=== PATIENT | male | born 1965 | race Caucasian/White ===

== ENCOUNTER → 2024-01-05 10:51 | Outpatient (CLI) | payer OTHER, SELFPAY ==
--- NOTE | ~2024-01-05 | XR_ITS ---
EXAMINATION: XR knee RT 3V DATE: 01/05/2024 11:13 INDICATION: Right knee pain TECHNIQUE: Three views of the right knee were obtained. COMPARISON: None. FINDINGS: Alignment is normal. No fracture or osteochondral lesion. There is mild tricompartmental os teoarthritis characterized by tiny marginal osteophytes. No joint effusion/synovitis. Soft tissues a re unremarkable. IMPRESSION: 1. No acute osseous abnormality. Reviewed, dictated and finalized at location L. R READING CLERK
--- NOTE | ~2024-01-05 | XR_ITS ---
EXAMINATION: XR knee LT 3V DATE: 01/05/2024 11:12 INDICATION: Left knee pain TECHNIQUE: Three views of the left knee were obtained. COMPARISON: None. FINDINGS: Alignment is normal. No fracture or osteochondral lesion. There is mild tricompartmental os teoarthritis characterized by tiny marginal osteophytes. No joint effusion/synovitis. Soft tissues a re unremarkable. IMPRESSION: 1. No acute osseous abnormality. Reviewed, dictated and finalized at location L. URE REPAIRER FABRICATOR
== END ==
PROVIDERS: PCP Physician Assistant; Visit Provider Physician Assistant
DX: S89.92XA Unspecified injury of left lower leg, initial encounter (principal); S89.91XA Unspecified injury of right lower leg, initial encounter
CPT/HCPCS: 73562

== ENCOUNTER 2024-01-19 16:38 | Emergency (ER) | payer OTHER, SELFPAY ==
[2024-01-19] VITALS (12 sets, daily range): BP systolic 114–137; BP diastolic 79–94; PULSE 91–101; RESP 12–18; TEMP 35.9–36.8; O2SAT 96–100
--- NOTE | ~2024-01-19 | XR_ITS ---
EXAMINATION: XR chest 1V portable DATE: 01/19/2024 19:27 INDICATION: Weakness. TECHNIQUE: A single frontal view of the chest was obtained on 2 radiographs. COMPARISON: Chest 2 views 12/31/2017 FINDINGS: There is no pneumonia, pleural effusion, or pneumothorax. The heart size is normal. IMPRESSION: 1. No acute cardiopulmonary disease. Reviewed, dictated and finalized at location E. UITING SPECIALIST
[2024-01-19] MEDS: SODIUM CHLORIDE 0.9% IV 1,000 ML 999 ML (18:45)
--- NOTE | 2024-01-19 18:57 | ECG_ITS ---
Measurements Intervals [place] Rate: 95 P: 69 [place]: 151 QRS: -51 QRSD: 110 T: -65 QT: 370 QTc: 467 Interpretive Statements SINUS RHYTHM LEFT ANTERIOR FASCICULAR BLOCK LEFT VENTRICULAR HYPERTROPHY AND ST-T CHANGE CANNOT RULE OUT SEPTAL INFARCT, AGE INDETERMINATE ST-T WAVE ABNORMALITY IN ANTEROLAT/INF LEADS- CONSIDER ISCHEMIA BASELINE ARTIFACT- I, II, III, AVR, AVL, V1-V2, V4 ABNORMAL ECG NO PREVIOUS ECG AVAILABLE FOR COMPARISON Electronically Signed On 01-19-2024 19:17:17 COMMERCIAL CONSTRUCTION SUPERINTENDENT by Michael Siu D.O.
[2024-01-19 19:53] LABS: Basophils Percent Auto 0.4 % (0.2-1.2); Eosinophils Percent Auto 0.1 % (0-4.4); Hematocrit 40.4 % (42.0-52.0); Hemoglobin 14.6 g/dL (14.0-18.0); Immature Granulocyte Absolute 0.05 K/mm3 (0.00-0.031); Immature Granulocyte Percent A 0.5 % (0-0.5); Lymphocytes Absolute Auto 0.99 K/mm3 (0.9-3.2); Lymphocytes Percent Auto 9.1 % (18.3-44.2); Mean Corpuscular HGB Conc 36.1 g/dl (32-36); Mean Corpuscular Hemoglobin 30.4 pg (26-34); Mean Corpuscular Volume 84.2 fl (80-100); Mean Platelet Volume 8.2 fl (7.4-10.4); Monocytes Absolute Auto 0.8 K/mm3 (0.1-0.6); Monocytes Percent Auto 7.3 % (2.6-8.5); Neutrophils Percent Auto 82.6 % (45.5-73.1); Platelet Count Result 310 k/mm3 (150-375); Red Cell Distribution Width 12.3 % (11.5-14.5); White Blood Count 10.9 K/mm3 (4.5-10.0)
[2024-01-19 20:01] LABS: Lactic Acid Reflex 0.9 mmol/L (0.7-2.0)
--- NOTE | 2024-01-19 20:03 | ED.DIZZY ---
HPI - Dizziness General Chief Complaint: Syncope Stated Complaint: NEAR SYNCOPE AFTER POSITION CHANGE Time Seen by Provider: 01/19/24 19:16 History of Present Illness HPI Narrative: Patient is a 58-year-old male who presents to the emergency department this evening from his physical therapy facility due to a low blood pressure. Patient's family member present at bedside states that the patient was being evaluated today for physical therapy, however, patient was found to be orthostatic and was sent to our facility for further evaluation. Patient admits that he has not been drinking enough fluids. He is currently denying any chest pain, shortness of breath, nausea, vomiting and denies any falls or injuries. He denies any fevers or chills at home, any headaches, dizziness, blurry vision, focal weakness, numbness and tingling. There are no other modifying, alleviating, or precipitating factors at this time. Related Data Allergies Allergy/AdvReac Type Severity Reaction Status Date / Time No Known Allergies Allergy Verified 01/17/24 09:46 Review of Systems Review of Systems: All systems are reviewed and are negative unless stated otherwise in the HPI. [facility] Past Medical History Medical History Broken collarbone Diabetic peripheral neuropathy Hyperlipidemia LDL goal <70 Obesity (BMI 30-39.9) Seizure disorder Type 2 diabetes mellitus with hyperglycemia Vitamin D deficiency Surgical History Surgical History History of tonsillectomy Social History Social History Smoking status: Current every day smoker Second hand tobacco smoke exposure: No Alcohol intake: never Substance use: never Substance use type: does not use Living arrangements: with family Occupation/Education: occupation Gender identity (if verbalized by the patient): Male Sexual Orientation (if Verbalized by the Patient): Straight or Heterosexual Spiritual care concerns: No Agree to blood products: Yes Exam Narrative: General: Alert, awake, afebrile, in no acute distress. HEENT: PERRL, no rhinorrhea, no post nasal drip, oropharynx clear. Neck: Trachea midline, no JVD, no lymphadenopathy. Cardiovascular: Regular rate and rhythm, no murmurs, rubs or gallops, no peripheral edema. Respiratory: Clear to auscultation bilaterally, no tachypnea, no wheezing, no rhonchi, no rubs, no respiratory distress. Abdomen: Soft, nontender, nondistended, no rebound, no guarding, no peritoneal signs. Musculoskeletal: No joint swelling or deformity, normal muscle tone. Skin: No rashes or petechia, no signs of infection. Psychiatric: Alert and oriented, normal behavior and judgment for situation. Neurological: Alert and oriented to person, place, and time. Follows all commands. No focal deficits, speech is clear and fluent. Patient is ambulating well using his cane. Course Vital Signs Vital signs: Vital Signs Temperature 96.7 F L 01/19/24 18:21 Pulse Rate 100 01/19/24 18:21 Respiratory Rate 18 01/19/24 18:21 Pulse Oximetry 100 01/19/24 18:21 Oxygen Delivery Room Air 01/19/24 18:21 Temperature 98.2 F 01/19/24 22:05 Pulse Rate 101 H 01/19/24 23:28 Respiratory Rate 18 01/19/24 23:28 Blood Pressure 135/94 H 01/19/24 23:28 Pulse Oximetry 96 01/19/24 23:28 Oxygen Delivery Room Air 01/19/24 18:21 MDM - Dizziness MDM Narrative Medical decision making narrative: The patient was evaluated by myself in the emergency department. History is obtained from patient who is an independent historian and physical exam was performed. External medical records were reviewed at this time. IV was established and pertinent tests were ordered. Patient was administered a 1.5 L IV fluid bolus administered over 2 hours. EKG was obtained which revealed sinus rhythm
[2024-01-19 20:08] LABS: Alanine Aminotransferase 22 U/L (6-50); Albumin Level 3.8 g/dL (3.5-5.1); Alkaline Phosphatase 164 U/L (38-126); Anion Gap 12 mmol/L (8-16); Aspartate Amino Transferase 20 U/L (17-59); Bilirubin,Total 0.7 mg/dL (0.2-1.3); Blood Urea Nitrogen 15 mg/dL (9-20); Calcium 9.3 mg/dL (8.4-10.2); Carbon Dioxide 23 mmol/L (22-30); Chloride 104 mmol/L (98-107); Creatine Kinase 24 U/L (55-170); Estimated Glomerular Filt Rate > 60; Glucose 223 mg/dL (65-110); Magnesium 1.8 mg/dL (1.6-2.3); Potassium 3.8 mmol/L (3.4-5.0); Sodium 139 mmol/L (137-145)
[2024-01-19] MEDS: SODIUM CHLORIDE 0.9% IV 1,000 ML 150 ML IV CONT (20:14)
[2024-01-19 20:31] LABS: Influenza A QL RT-PCR Negative (Negative); Influenza B QL RT-PCR Negative (Negative); RSV RNA, RT-PCR Negative (Negative); SARS-CoV-2 RNA PCR Negative (Negative)
[2024-01-19 21:18] LABS: Troponin I < 0.012 ng/mL (0.000-0.034)
--- NOTE | 2024-01-19 21:24 | ECG_ITS ---
Measurements Intervals [place] Rate: 94 P: 68 [place]: 153 QRS: -51 QRSD: 115 T: -70 QT: 373 QTc: 468 Interpretive Statements SINUS RHYTHM INTRAVENTRICULAR CONDUCTION DELAY CANNOT RULE OUT SEPTAL INFARCT, AGE INDETERMINATE MINIMAL Q WAVES- HIGH LATERAL LEADS ST-T WAVE ABNORMALITY IN ANTEROLAT/INF LEADS- CONSIDER ISCHEMIA BASELINE ARTIFACT- I, AVR, AVL, AVF, V2 ABNORMAL ECG COMPARED TO ECG 01/19/2024 18:53:15 NO SIGNIFICANT CHANGES Electronically Signed On 01-20-2024 6:44:01 SUPERVISOR HAND SILVERING by Michael Siu D.O.
== END 2024-01-19 23:42 | disposition home or self-care (01) ==
PROVIDERS: Emergency Provider Emergency Medicine; PCP Family Medicine
DX: I95.1 Orthostatic hypotension (principal); E86.0 Dehydration; E78.5 Hyperlipidemia, unspecified; E11.9 Type 2 diabetes mellitus without complications; F17.200 Nicotine dependence, unspecified, uncomplicated; Z20.822 Contact with and (suspected) exposure to COVID-19
CPT/HCPCS: 36415; 71045; 80053; 82010; 82550; 83605; 83735; 84484; 85025; 87637; 93005; 96360; 96361; 99284; J7030

== ENCOUNTER 2024-01-25 12:42 | Outpatient (CLI) | payer OTHER, SELFPAY ==
--- NOTE | ~2024-01-25 | CT_ITS ---
EXAMINATION: CT brain wo/w con DATE: 01/25/2024 13:28 INDICATION: Unsteadiness on feet TECHNIQUE: Computed tomography (CT) of the head was performed without and with 100 mL Omnipaque-350 i ntravenous contrast. Sagittal and coronal reconstructions were performed. The mA was adjusted accordi ng to patient size. Iterative reconstruction technique was employed. The dose-length product was 1349 .03 mGy-cm. COMPARISON: None FINDINGS: No acute intracranial hemorrhage, acute infarction or abnormal extra axial fluid collection. There is mild scattered white matter hypoattenuation consistent with chronic small vessel ischemic disease. V entricles are normal and symmetric. No mass/mass effect. No abnormally enhancing brain lesions identi fied. Right vertebral artery is dominant. Cerebral vasculature appears otherwise unremarkable on the postcontrast imaging. The orbits, paranasal sinuses and mastoid air cells are normal. IMPRESSION: 1. Mild scattered white matter hypoattenuation consistent with chronic small vessel ischemic disease. No acute intracranial process or abnormally enhancing brain lesions. Reviewed, dictated and finalized at location B. IMPRESSION: 1. Mild scattered white matter hypoattenuation consistent with chronic small ve ssel ischemic disease. No acute intracranial process or abnormally enhancing br ain lesions.
[2024-01-25 13:03] LABS: Estimated Glomerular Filt Rate > 60
== END 2024-01-25 12:43 ==
LOC: MICIMG 12:43
PROVIDERS: PCP Physician Assistant Medical; Visit Provider Physician Assistant Medical
DX: R90.82 White matter disease, unspecified (principal); R26.81 Unsteadiness on feet
CPT/HCPCS: 36415; 70470; Q9967

== ENCOUNTER 2024-03-13 12:34 | Inpatient (IN) | payer OTHER, SELFPAY ==
[2024-03-13] VITALS (7 sets, daily range): BP systolic 110–129; BP diastolic 68–105; PULSE 101–111; RESP 17–18; TEMP 36.6–36.7; O2SAT 95–99; BMI 24.6
--- NOTE | ~2024-03-13 | XR_ITS ---
EXAM: XR toe 1st RT min 2V DATE: 03/13/2024 23:24 HISTORY: right 1st toe ulcer . COMPARISON: None available. FINDINGS: Normal mineralization. No fracture or dislocation. No lytic or blastic lesion. Mild degene rative change at the first MTP joint. No erosion or periosteal change. Soft tissues within normal tomlin its. IMPRESSION: No acute osseous finding in the right great toe. Reviewed, dictated and finalized at location K.
--- NOTE | ~2024-03-13 | XR_ITS ---
EXAMINATION: XR chest 1V DATE: 03/13/2024 14:03 INDICATION: Transient alteration of awareness. TECHNIQUE: A single frontal view of the chest was obtained. COMPARISON: Chest view 01/19/2024 FINDINGS: There is no pneumonia, pleural effusion, or pneumothorax. The heart size is normal. IMPRESSION: 1. No acute cardiopulmonary disease. Reviewed, dictated and finalized at location A.
--- NOTE | ~2024-03-13 | MR_ITS ---
EXAMINATION: MR brain/brain stem wo/w con DATE: 03/14/2024 16:30 INDICATION: Neurological decline. TECHNIQUE: Magnetic resonance imaging (MRI) of the brain and brainstem was performed without and with 17 mL MultiHance intravenous contrast. COMPARISON: Head CT 03/13/2024 FINDINGS: There is no intracranial hemorrhage, acute infarction, or abnormal intracranial mass lesion . The ventricles are normal in size. There is mild mucosal thickening in the ethmoid sinuses. The orb its are normal. The mastoid air cells are normal. IMPRESSION: 1. Normal brain. Reviewed, dictated and finalized at location A. IMPRESSION: 1. Normal brain.
--- NOTE | ~2024-03-13 | XR_ITS ---
EXAMINATION: XR lumbar puncture diagnostic DATE: 03/17/2024 09:58 INDICATION: 3 months of quantitative PICC line and hallucinations TECHNIQUE: The procedure including the risks and benefits was discussed with the patient and the shayna ent's . Risks discussed included spinal headache, cerebrospinal fluid leak, bleeding, and infecti on. The patient and patient's understood the risks and agreed to proceed. A timeout was perfo rmed to verify the patient's name, date of , and procedure to be performed. The skin overlying the L4-L5 level was prepped and draped in usual sterile fashion. Subcutaneous 1% lidocaine was used for local anesthesia. A 22 gauge spinal needle was advanced under fluoroscopic guidance. The needle was removed and the entry site was cleaned and dressed. There were no immediate complications. A tot al of 1 fluoroscopic image and one overhead radiograph were obtained. The amount of fluoroscopy time used during this procedure was 0.3 minutes. Total DAP was 8.894 Gycm^2. There were no immediate compl ications and the patient was returned to the floor in unchanged condition. FINDINGS: Real-time fluoroscopy demonstrates the needle at the L4-L5 level. Opening pressure was 12 c m water. (Normal range is variably defined as 6-20 cm water and up to 25 cm water in obese patients. Pressure >25 cm water is one of the modified Dandy criteria for idiopathic intracranial hypertension) . 12 mL of clear, colorless fluid was collected in 4 tubes. IMPRESSION: 1. Successful fluoro-guided lumbar puncture. Reviewed, dictated and finalized at location A.
--- NOTE | ~2024-03-13 | CT_ITS ---
EXAMINATION: CT brain wo con DATE: 03/13/2024 13:55 INDICATION: Altered mental status. Confusion. TECHNIQUE: Computed tomography (CT) of the head was performed without intravenous contrast. The mA wa s adjusted according to patient size. Iterative reconstruction technique was employed. The dose-lengt h product was 1362.00 mGy-cm. COMPARISON: Head CT 01/25/2024 FINDINGS: There is no intracranial hemorrhage, acute infarction, or abnormal intracranial mass lesion . The ventricles are normal in size. The orbits are normal. There is mild mucosal thickening in the e thmoid sinuses. The mastoid air cells are normal. IMPRESSION: 1. Normal brain. Reviewed, dictated and finalized at location A. IMPRESSION: 1. Normal brain.
--- NOTE | 2024-03-13 12:39 | ECG_ITS ---
SEE SCANNED COPY FOR CONFIRMED REPORT. MTDD
--- NOTE | 2024-03-13 12:43 | ED.EXTPRO ---
HPI - Extremity Problem General Chief complaint: Recheck/Abnormal Lab/Rx Stated complaint: unresponsive/hypoglycemic History of Present Illness HPI Narrative: 58-year-old male presenting emergency department for evaluation after being found unresponsive. states that she had left yesterday and patient was resting in his chair and when she returned today he was still sitting in the same position. When she went to talk to the patient he was unresponsive. EMS was called. When EMS arrived to the scene patient was unresponsive sonorous respirations and did have a blood sugar of 20. Patient was treated with IV dextrose and did have improvement of his mental status upon arrival to the emergency department. Patient did have loss of bladder control. Upon arrival emergency department patient is more alert is able to provide his name. Patient is unable to provide an adequate history and was unsure if he has a history of seizures or diabetes. Patient's EMR does show history high cholesterol, seizure disorder and type 2 diabetes with peripheral neuropathy. Upon arrival emergency department patient denies any chest pain shortness of breath denies any pain or injury. Related Data Home Medications Medication Instructions Recorded Confirmed cholecalciferol (vitamin D3) 50 50 mcg PO DAILY 03/13/24 03/13/24 mcg (2,000 unit) tablet (Vitamin D3) insulin glargine-yfgn 100 unit/mL 38 unit subcut BID 03/13/24 03/13/24 (3 mL) subcutaneous pen (Semglee (insulin glargine-yfgn) Pen) metformin 500 mg tablet,extended 2,000 mg PO QPM 03/13/24 03/13/24 release 24 hr Allergies Allergy/AdvReac Type Severity Reaction Status Date / Time No Known Allergies Allergy Verified 02/28/24 10:57 Review of Systems Review of Systems: All systems reviewed & are unremarkable except as noted in HPI and below PMFSH Past Medical History Medical History Broken collarbone Diabetic peripheral neuropathy Hyperlipidemia LDL goal <70 Obesity (BMI 30-39.9) Seizure disorder Type 2 diabetes mellitus with hyperglycemia Vitamin D deficiency Surgical History Surgical History History of tonsillectomy Family History Family History (Updated 03/13/24 @ 18:22 by Trudy Lee RN) Father Acute myocardial infarction Other Diabetes mellitus Mother Chronic leukemia Social History Social History Smoking status: Never smoker Second hand tobacco smoke exposure: No Alcohol intake: never Substance use: never Substance use type: does not use Do You Feel Safe in your Home?: Yes Lack of Transportation: No Lack of Food: Never True Current Housing: I Have Housing Concerned About Future Housing: No Difficulty Paying Gas/Electric Bills: No Difficulty Paying for Meds: No Currently Unemployed: No Education: Bachelor's Degree Difficulty w/ Childcare or Family Care: No Living arrangements: with family Occupation/Education: occupation Gender identity (if verbalized by the patient): Male Sexual Orientation (if Verbalized by the Patient): Straight or Heterosexual Spiritual care concerns: No Agree to blood products: Yes Exam Narrative: APPEARANCE: well-appearing but somnolent HEAD: normocephalic, atraumatic. EYES: PERRLA/EOMI, conjunctivae clear. NOSE: Normal no drainage EARS:TMS clear with good light reflex. THROAT: Pharynx clear, no exudate. NECK: Supple. No adenopathy, no masses. RESPIRATORY: Airway patent, respirations nonlabored. Clear to auscultation bilaterally, no rales, rhonchi, wheezing. CARDIOVASCULAR: Regular rate and rhythm without murmurs rubs or gallops. ABDOMINAL: Soft, nontender, nondistended, normal bowel sounds MUSCULOSKELETAL: Moves all extremities. Strength/ROM intact, No edema, No calf tenderness.
--- NOTE | 2024-03-13 12:43 | PC.NURSE ---
blood sugar 106 at this time
[2024-03-13 12:57] LABS: Glucose Point of Care 106 mg/dl (65-105)
[2024-03-13] MEDS: SODIUM CHLORIDE 0.9% IV 1,000 ML 999 ML IV CONT ×2 (13:05→14:29)
[2024-03-13 13:09] LABS: Alveolar/Arterial O2 Gradient 23.2 mmHg; Base Excess ABG -0.5 mEq/l (+/-2.0); Fractional Inspired Oxygen 21 %; HCO3 ABG 23.1 mEq/l (22.0-26.0); Oxygen Content ABG 22.5 %vol (16.0-22.0); Oxygen Saturation ABG 96.6 % (95.0-100.0); Oxyhemoglobin 95.2 % THb (90.0-100.0); PCO2 ABG 35.4 mmHg (35.0-45.0); PO2 ABG 84.1 mmHg (80.0-100.0); Total Hemoglobin 16.8 g/dL (12.0-18.0); pH ABG 7.432 (7.350-7.450)
[2024-03-13 13:11] LABS: Basophils Percent Auto 0.3 % (0.2-1.2); Eosinophils Percent Auto 0.1 % (0-4.4); Hematocrit 45.9 % (42.0-52.0); Hemoglobin 16.5 g/dL (14.0-18.0); Immature Granulocyte Absolute 0.04 K/mm3 (0.00-0.031); Immature Granulocyte Percent A 0.3 % (0-0.5); Lymphocytes Absolute Auto 0.81 K/mm3 (0.9-3.2); Lymphocytes Percent Auto 5.6 % (18.3-44.2); Mean Corpuscular HGB Conc 35.9 g/dl (32-36); Mean Corpuscular Hemoglobin 30.3 pg (26-34); Mean Corpuscular Volume 84.2 fl (80-100); Mean Platelet Volume 8.5 fl (7.4-10.4); Monocytes Absolute Auto 0.8 K/mm3 (0.1-0.6); Monocytes Percent Auto 5.6 % (2.6-8.5); Neutrophils Absolute Auto 12.7 K/mm3 (1.3-6.7); Neutrophils Percent Auto 88.1 % (45.5-73.1); Platelet Count Result 226 k/mm3 (150-375); Red Blood Count 5.45 M/mm3 (4.6-6.20); Red Cell Distribution Width 14.1 % (11.5-14.5); White Blood Count 14.4 K/mm3 (4.5-10.0)
[2024-03-13 13:19] LABS: Device ROOM AIR; Modified Allen's Test Pass; Site Drawn RIGHT RADIAL
[2024-03-13 13:22] LABS: Creatine Kinase 66 U/L (55-170); Lactic Acid Reflex 1.2 mmol/L (0.7-2.0)
[2024-03-13 13:26] LABS: INR 0.9; Prothrombin Time 12.9 Seconds (11.1-14.7)
[2024-03-13 13:27] LABS: Partial Thromboplastin Time 32.2 Seconds (22.3-36.8)
[2024-03-13 13:28] LABS: Acetaminophen < 10 ug/mL (10-30); Alanine Aminotransferase 19 U/L (6-50); Albumin Level 4.2 g/dL (3.5-5.1); Alkaline Phosphatase 151 U/L (38-126); Anion Gap 7 mmol/L (4-12); Aspartate Amino Transferase 25 U/L (17-59); Bilirubin,Total 0.7 mg/dL (0.2-1.3); Blood Urea Nitrogen 12 mg/dL (9-20); Calcium 9.2 mg/dL (8.4-10.2); Carbon Dioxide 23 mmol/L (22-30); Chloride 104 mmol/L (98-107); Estimated Glomerular Filt Rate > 60; Ethanol < 10 mg/dL (<10); Glucose 91 mg/dL (65-110); Potassium 4.1 mmol/L (3.4-5.0); Salicylate < 1.0 mg/dL (2-20); Sodium 134 mmol/L (137-145)
[2024-03-13 13:49] LABS: Influenza A QL RT-PCR Negative (Negative); Influenza B QL RT-PCR Negative (Negative); RSV RNA, RT-PCR Negative (Negative); SARS-CoV-2 RNA PCR Negative (Negative)
[2024-03-13 15:04] LABS: Appearance Urine Clear (Clear); Bilirubin Urine Negative (Negative); Blood Urine Negative (Negative); Color Urine Yellow (Yellow); Glucose Urine UA Negative (Negative); Ketones Urine Negative (Negative); Leukocyte Esterase Ur Negative LEU/UL (Negative); Nitrate Urine Negative (Negative); Protein Urine Negative (Negative); Urobilinogen Urine 0.2 mg/dL (<2.0); pH Urine 6.5 (5.0-9.0)
[2024-03-13 15:06] LABS: Add Urine Microscopic? NO
[2024-03-13 15:48] LABS: Glucose Point of Care 47 mg/dl (65-105)
[2024-03-13] MEDS: DEXTROSE 50% 25 GM/50 ML SYRINGE IV PUSH (15:52)
[2024-03-13 16:59] LABS: Glucose Point of Care 112 mg/dl (65-105)
--- NOTE | 2024-03-13 17:07 | PM.IMHP ---
H&P: HPI History of Present Illness Date/Time: 03/13/24 16:45 Chief Complaint: Unresponsive. Narrative: This is a 58-year-old male with insulin dependent type 2 diabetes mellitus, diabetic peripheral neuropathy, seizure disorder, and obstructive sleep apnea who presented to the emergency department via EMS from home for evaluation after his found him unresponsive. She was out of town for the day yesterday and when she got home last evening he was asleep on the couch and she did not disturb him. When she got up this morning he was still on the couch and she was unable to get him to wake up and she called 911. On EMS arrival his glucose was 20 and he was given IV dextrose with improvement in his mental status upon arrival to the ED. Despite being more awake he is not a great historian and admits that he has periods of confusion and he has been declining since September 2023. 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 He has been ambulating with a cane but he still feels as though his legs give out which caused him to fall. He has lost 100 lb unintentionally in the past year and a half and he has poor oral intake however he drinks 1 or 2 gallons of sweet tea a day. To his 's knowledge, he has not had a seizure since 1996. She ensures that he takes his medications, he is not responsible for his own medicines. He has not been good with bathing. There have been no recent cold or flu symptoms. He does not seem to have difficulties chewing or swallowing. She has not noticed that he has difficulties breathing. At the time of my evaluation the patient is awake and alert but is not a great historian. He is confused and is unable to tell me the current president, year, and month. He has no current complaints. In the ED: He was afebrile on arrival with stable blood pressures. He has been in a sinus tachycardia with rates in the low 100s. Labs were significant for WBC count of 14.4, hemoglobin 16.5, sodium 134, creatinine 0.40, glucose 91, lactic acid 1.2, TSH 0.510, total CK 66. Urinalysis was unremarkable. Alcohol, acetaminophen, and salicylates were undetectable. He tested negative for influenza, RSV, and COVID. Brain CT showed a normal brain. Chest x-ray showed no acute cardiopulmonary findings. He has been started on a D5 drip for continued hypoglycemia and he is being admitted for further workup and evaluation. Review of Systems Review of Systems: Twelve systems were reviewed. Limited however as he is a poor historian. He has not had a fever. denies recent cold and flu symptoms. No nausea, vomiting, or diarrhea to her knowledge either. He denies dysuria. He has wounds on his feet and toes which states is due to him picking at them; patient says it feels as though he has glue on his fingers and toes. Except as documented, all other systems were reviewed and are negative. [facility] Past Medical History Medical History (Updated 03/13/24 @ 23:09 by Madelyn Myers PA-C) Diabetic peripheral neuropathy Hyperlipidemia LDL goal <70 Obstructive sleep apnea Seizure disorder Type 2 diabetes mellitus Vitamin D deficiency Surgical History Surgical History History of tonsillectomy Family History Family History Father Acute myocardial infarction Other Diabetes mellitus Mother Chronic leukemia Social History Social History (Updated 03/13/24 @ 23:03 by Madelyn Myers PA-C) Social History: Surrogate medical decision maker: Linda Jackymariah, spouse. Code status: Full code. Smoking status: Never smoker Second hand tobacco smoke exposure: No Alcohol intake: never Substance use: never Substance use type: does not use Do You Feel Safe in your Home?: Yes Lack of Transportation: No Lack of Food: Never True Current Housing
[2024-03-13 17:54] LABS: Glucose Point of Care 84 mg/dl (65-105)
--- NOTE | 2024-03-13 18:02 | ADMGEN ---
This patient, Jaiden Pickett, was admitted to IMU Room 205-01 @ 1734. Patient/family oriented to hospital policies and general routines including ID bracelet, bed and alarms, visiting hours, pain management, procedures, bathroom and other care routines, personal items, smoking policy, room service/diet, and visiting hours. Information on how to activate the Rapid Response Team has been discussed. Patient/Family are encouraged to report perceived risks to care and to ask questions if they do not understand what they are told or what they should do.
[2024-03-13] MEDS: DEXTROSE 5%/0.9% SOD CHL 1,000 ML 100 ML IV CONT (18:22)
[2024-03-13 22:01] LABS: Glucose Point of Care 91 mg/dl (65-105)
[2024-03-13 22:12] LABS: Glucose Point of Care 117 mg/dl (65-105)
[2024-03-14] VITALS (11 sets, daily range): BP systolic 109–144; BP diastolic 63–87; PULSE 96–106; RESP 14–18; TEMP 36.2–37.1; O2SAT 98–100; BMI 24.4
[2024-03-14 00:13] LABS: CRP 1.7 mg/dL (<1.0); Phenytoin Dilantin 9 ug/mL (10-20)
[2024-03-14] MEDS: CEFEPIME 2 GM/NS 50 ML 2 GM/50 ML BAG IVPB ×3 (00:16→22:40)
[2024-03-14 00:17] LABS: Hemoglobin A1C 5.5 % (<5.7)
[2024-03-14] MEDS: PHENYTOIN SODIUM 100 MG EXTENDED RELEASE CAP 300 MG PO ×2 (00:20→09:29)
[2024-03-14 00:29] LABS: Glucose Point of Care 171 mg/dl (65-105)
[2024-03-14] MEDS: metroNIDAZOLE 500 MG/ISO 100ML 500 MG/100 ML BAG 100 MG IVPB ×2 (00:35→09:32)
[2024-03-14] MEDS: VANCOMYCIN 1,250 MG/NS 250 ML 1,250 MG/250 ML BAG 166.67 MG IVPB (00:38)
[2024-03-14] MEDS: VANCOMYCIN 1,000 MG/NS 250 ML 1,000 MG/250 ML BAG 250 MG IVPB (01:50)
[2024-03-14 02:00] LABS: Glucose Point of Care 86 mg/dl (65-105)
[2024-03-14] MEDS: DEXTROSE 5%/0.9% SOD CHL 1,000 ML 100 ML IV CONT (04:06)
[2024-03-14 04:15] LABS: Hematocrit 38.1 % (42.0-52.0); Mean Corpuscular HGB Conc 34.1 g/dl (32-36); Mean Corpuscular Hemoglobin 29.8 pg (26-34); Mean Corpuscular Volume 87.4 fl (80-100); Mean Platelet Volume 8.2 fl (7.4-10.4); Platelet Count Result 193 k/mm3 (150-375); Red Blood Count 4.36 M/mm3 (4.6-6.20); Red Cell Distribution Width 14.1 % (11.5-14.5); White Blood Count 9.4 K/mm3 (4.5-10.0)
[2024-03-14 04:32] LABS: Anion Gap 4 mmol/L (4-12); Blood Urea Nitrogen 10 mg/dL (9-20); Calcium 8.7 mg/dL (8.4-10.2); Carbon Dioxide 24 mmol/L (22-30); Chloride 111 mmol/L (98-107); Estimated CRCL calculation 154 ml/min; Estimated Glomerular Filt Rate > 60; Glucose 117 mg/dL (65-110); Potassium 3.7 mmol/L (3.4-5.0); Sodium 139 mmol/L (137-145)
[2024-03-14 05:55] LABS: Glucose Point of Care 121 mg/dl (65-105)
[2024-03-14 08:13] LABS: Glucose Point of Care 111 mg/dl (65-105)
[2024-03-14] MEDS: CHOLECALCIFEROL 1,000 UNITS TABLET 2000 UNITS PO (09:31)
[2024-03-14] MEDS: ENOXAPARIN 40 MG/0.4 ML SYRINGE SUB-Q (09:33)
--- NOTE | 2024-03-14 09:56 | PM.IMPN ---
Progress Note: A&P Assessment and Plan (1) Cognitive impairment: Code(s): R41.89 - Other symptoms and signs involving cognitive functions and awareness Status: Acute (2) Cellulitis in diabetic foot: Code(s): E11.628 - Type 2 diabetes mellitus with other skin complications; L03.119 - Cellulitis of unspecified part of limb Status: Acute (3) Type 2 diabetes mellitus: Code(s): E11.9 - Type 2 diabetes mellitus without complications Status: Acute Plan 58-year-old male with a history of epilepsy, insulin-dependent type 2 diabetes mellitus, diabetic peripheral neuropathy, HAMILTON stenting with episode of unresponsiveness per the . The patient 1st had a seizure in 1996 and was placed on Dilantin. He has not had that dose change recently. Reports the patient has confusion intermittently for the past 2 years but this has not been worked up. She reports he has had 100 lb unintentional weight loss in last 1.5 years and otherwise drinking large amount of sweet tea throughout the day. He does not take care of himself she handles his medications. He was found to be profoundly hypoglycemic with EMS with a blood sugar of 20 and given IV dextrose. Patient was admitted for further management and of no being treated for a diabetic foot ulcer on admission. Upon evaluation on 03/14/2024 the is at bedside and reports he is improved but still confused which could be his normal relating to last 2 years of intermittent confusion. Patient does not delineate why he feels ill aside from thinking Dilantin is causing this. He is A&O x2. Neurology workup is pending. Brain MRI with and without contrast is pending. Discontinue Dilantin. Dilantin level pending. Quad viral screen on admission along with CT of the brain without acute abnormalities. He does not look toxic/septic and his foot ulcer does not appear erythematous or draining pus although signs of cellulitis was noted by the admitting nurse practitioner. Discontinue vancomycin and Flagyl. Continue cefepime for 1 more day and attempt to deescalate tomorrow. Wound care team has been consulted. His hemoglobin A1c is 5.5 this supports him having a poor diet and low sugars as reported by the . He is on metformin and glargine 38 units b.i.d.. Is probably all too much for him. Discontinue D5 normal saline at this time and monitor his blood sugars q.1 hour x2 and then q.4 hours thereafter. He has been in the 80s to 100s overnight. Hypoglycemia protocol is in place. FEN: Saline lock IV. Diabetic diet. GI prophylaxis: Not indicated DVT prophylaxis: Lovenox 40 mg subQ daily Lines: Peripheral IV Code Status: Full code Dispo: Stable. Transfer to [facility] if q.1 hour blood sugars x2 are above 100. Subjective Date/time seen: 03/14/24 09:56 Interval history: No acute overnight events. The patient is still on D5 normal saline. at bedside. She reports he still appears confused but improved and this has been going on for many years. The patient himself has no complaints and cannot delineate specific complaints as to why he feels ill. Thinks he may be due to Dilantin. Review of Systems Review of Systems: All systems reviewed & are unremarkable except as noted in HPI and below (Subjective) Exam Const: General: comfortable and no acute distress Other: A&O x2. Delayed verbal response. Globally weak. Follows commands Eyes: Pupils: Equal, round and reactive pupils present Neck: Neck: supple Resp: Effort & Inspection: normal respiratory effort Auscultation: clear to auscultation bilaterally Cardio: Rate: regular rate Rhythm: regular rhythm GI: GI Palp: Yes Soft to palpation and No Tenderness to palpation present (GI) Extrem: General: no edema Objective Data Vital Signs Vital Signs: Vital Signs - 24 hr 03/13/24 12:33 03/13/24 14:06 03/13/24 16:30 Temperature 98.1 F Pulse Rate 105 H 101 H 107 H Respiratory Rate 18 18 17 B
[2024-03-14 11:02] LABS: Glucose Point of Care 166 mg/dl (65-105)
--- NOTE | 2024-03-14 11:33 | PCDIET ---
Malnutrition note: Pt meets criteria for severe malnutrition: weight loss 19%/5 months, intakes <75% needs >1 month; moderate muscle wasting and fat loss.
[2024-03-14 11:50] LABS: Glucose Point of Care 170 mg/dl (65-105)
--- NOTE | 2024-03-14 12:00 | WPDNEURCNPN ---
Assessment and Plan Assessment and plan (1) Cognitive impairment: Code(s): R41.89 - Other symptoms and signs involving cognitive functions and awareness Status: Acute (2) Gait instability: Code(s): R26.81 - Unsteadiness on feet Status: Acute (3) Type 2 diabetes mellitus with hyperglycemia: Qualifiers: Diabetes mellitus terminal superintendent insulin use: without terminal superintendent use Qualified Code(s): E11.65 - Type 2 diabetes mellitus with hyperglycemia Code(s): E11.65 - Type 2 diabetes mellitus with hyperglycemia Status: Acute (4) Seizure disorder: Code(s): G40.909 - Epilepsy, unspecified, not intractable, without status epilepticus Status: Acute Plan 1. Diabetes mellitus 2. Episode of hypoglycemia 3. Diabetic peripheral neuropathy with the possibility of the autonomic nerve dysfunction as well 4. Cognitive dysfunction 5. Gait dysfunction 6. History of seizure disorder suggestion in addition to the regular treatment will benefit from the physical therapy more compliance with the medication evaluation for the orthostatic hypotension and recurrent falls and physical therapy. Has been taking phenytoin levels will be checked if he has underlying diabetic related neuropathy with autonomic dysfunction we might switch him over to the Keppra dose of Dilantin which can in the long run cause the more ambulatory gait dysfunction. Consult date: 03/14/24 HPI: Jaiden Pickett is a 58 year old male Admitted to the hospital through the emergency room where he was brought subsequent to being found unresponsive. reported that she had left yesterday and is resting in his chair and when she returned the day of admission was still sitting in the same position. And when she tried to talk to the patient he was unresponsive at that time EMS were called to the scene and when EMS arrived to the scene patient was still unresponsive with sonorous respiration with blood sugar of only 20 he was given IV dextrose some improvement is mental status at that time we did have the loss of bladder control in the emergency room initially was more alert able to void is now but still was unable to provide any adequate history and was unable to give the information whether he has underlying seizures or diabetes mellitus. Though by information he was known to have hypercholesterolemia diabetes mellitus with peripheral neuropathy and seizure disorder. He has been taking insulin 30units subQ b.i.d. with metformin 2000mg every evening he is not allergic to any medication and in the past has been diagnosed to have diabetic peripheral neuropathy with seizure disorder and vitamin-D deficiency he is not alcohol intake never substance use and his initial exam in the emergency room revealed him to move all the 4 extremities fairly well there was no cranial nerves deficit but still he was somnolent his vital signs were normal except tachycardia CBC was normal basic metabolic panel with sodium 134 routine lab studies were negative and screening for influenza a B RSV and [id number] were all negative he was admitted with diagnosis of hypoglycemia there was some observation of gait dysfunction in the ER CT scan of the head was obtained which revealed no evidence of space-occupying lesion and also no underlying hydrocephalus. At home he has been walking with a cane but has been increasingly unstable on his feet frequent falls he has not had seizures since 1996 has been taking medication regularly but not very responsibly Review of Systems Review of Systems: All systems reviewed & are unremarkable except as noted in HPI and below PMFSH Past Medical History Medical History (Updated 03/13/24 @ 23:09 by Madelyn Myers PA-C) Diabetic peripheral neuropathy Hyperlipidemia LDL goal <70 Obstructive sleep apnea Seizure disorder Type 2 diabetes mellitus Vitamin D deficiency Surgical History Surgical History (Reviewed 03/13/24 @ 23:03 by Madelyn Hernandez
--- NOTE | 2024-03-14 12:48 | PC.NURSE ---
Per Dr. Edouard, discontinued IV fluids at 0945. checked blood sugar q 1 hr x 2 hr. Since blood sugar remained over 100, pt ok to transfer to med/surg.
[2024-03-14 16:41] LABS: Glucose Point of Care 127 mg/dl (65-105)
[2024-03-14] MEDS: ACETAMINOPHEN 325 MG TABLET 650 MG PO (18:24)
[2024-03-14 21:08] LABS: Glucose Point of Care 114 mg/dl (65-105)
[2024-03-15 00:34] LABS: Glucose Point of Care 165 mg/dl (65-105)
[2024-03-15 05:45] LABS: Basophils Percent Auto 0.6 % (0.2-1.2); Eosinophils Percent Auto 0.3 % (0-4.4); Hematocrit 41.1 % (42.0-52.0); Hemoglobin 14.1 g/dL (14.0-18.0); Immature Granulocyte Absolute 0.02 K/mm3 (0.00-0.031); Immature Granulocyte Percent A 0.3 % (0-0.5); Lymphocytes Absolute Auto 1.45 K/mm3 (0.9-3.2); Lymphocytes Percent Auto 21.3 % (18.3-44.2); Mean Corpuscular HGB Conc 34.3 g/dl (32-36); Mean Corpuscular Hemoglobin 29.9 pg (26-34); Mean Corpuscular Volume 87.3 fl (80-100); Mean Platelet Volume 8.4 fl (7.4-10.4); Monocytes Absolute Auto 0.7 K/mm3 (0.1-0.6); Monocytes Percent Auto 10.6 % (2.6-8.5); Neutrophils Absolute Auto 4.6 K/mm3 (1.3-6.7); Neutrophils Percent Auto 66.9 % (45.5-73.1); Platelet Count Result 203 k/mm3 (150-375); Red Blood Count 4.71 M/mm3 (4.6-6.20); Red Cell Distribution Width 13.8 % (11.5-14.5); White Blood Count 6.8 K/mm3 (4.5-10.0)
[2024-03-15 05:58] LABS: Anion Gap 6 mmol/L (4-12); Blood Urea Nitrogen 8 mg/dL (9-20); Calcium 9.1 mg/dL (8.4-10.2); Carbon Dioxide 26 mmol/L (22-30); Chloride 107 mmol/L (98-107); Estimated CRCL calculation 154 ml/min; Estimated Glomerular Filt Rate > 60; Glucose 153 mg/dL (65-110); Magnesium 1.9 mg/dL (1.6-2.3); Potassium 3.7 mmol/L (3.4-5.0); Sodium 139 mmol/L (137-145)
[2024-03-15 06:30] VITALS: BP 184/92; PULSE 110; RESP 16; TEMP 36.3; O2SAT 98
[2024-03-15 06:42] LABS: Glucose Point of Care 147 mg/dl (65-105)
[2024-03-15] MEDS: hydrALAZINE HCL 20 MG/ML VIAL 10 MG IV PUSH (06:59)
[2024-03-15 08:01] LABS: Glucose Point of Care 138 mg/dl (65-105)
[2024-03-15 08:17] VITALS: BP 154/101; PULSE 114; RESP 17; TEMP 36.3; O2SAT 98
--- NOTE | 2024-03-15 08:57 | P.CDI_ITS ---
Severe protein calorie malnutrition CDI Query Clarification Request BMI 24.9 Nutritional Diagnostic Statement: Severe protein calorie malnutrition related to chronic loss of appetite as evidenced by weight loss -19%/5 months; inadequate intake <75% needs >1 month; moderate muscle wasting (temporalis, clavicles, shoulders) and moderate fat loss (buccal fat pads) Please refer to the comprehensive nutrition assessment by the waist fitter for further information. Please specify severity of malnutrition if known: * Mild * Moderate * Severe * Other/Unknown
--- NOTE | 2024-03-15 10:33 | PCOTNOTE ---
Per RN, pt is with increased confusion/paranoia and not fully participating in medical exam this am. RN recommends holding on pt this am. Will continue to follow and see as appropriate.
--- NOTE | 2024-03-15 10:54 | PM.IMPN ---
Progress Note: A&P Assessment and Plan (1) Cellulitis in diabetic foot: Code(s): E11.628 - Type 2 diabetes mellitus with other skin complications; L03.119 - Cellulitis of unspecified part of limb Status: Acute (2) Hypoglycemia: Code(s): E16.2 - Hypoglycemia, unspecified Status: Acute (3) Hallucination, visual: Code(s): R44.1 - Visual hallucinations Status: Acute (4) Delusions: Code(s): F22 - Delusional disorders Status: Acute (5) Type 2 diabetes mellitus: Code(s): E11.9 - Type 2 diabetes mellitus without complications Status: Acute Plan 58-year-old male with a history of epilepsy, insulin-dependent type 2 diabetes mellitus, diabetic peripheral neuropathy, H[place]TON stenting with episode of unresponsiveness per the .? The patient 1st had a seizure in 1996 and was placed on Dilantin.? He has not had that dose change recently.? Reports the patient has confusion intermittently for the past 2 years but this has not been worked up.? She reports he has had 100 lb unintentional weight loss in last 1.5 years and otherwise drinking large amount of sweet tea throughout the day.? He does not take care of himself she handles his medications.? He was found to be profoundly hypoglycemic with EMS with a blood sugar of 20 and given IV dextrose.? Patient was admitted for further management and of no being treated for a diabetic foot ulcer on admission. Upon evaluation on 03/14/2024 the is at bedside and reports he is improved but still confused which could be his normal relating to last 2 years of intermittent confusion.? Patient does not delineate why he feels ill aside from thinking Dilantin is causing this.? He is A&O x2.? Neurology workup is pending.? Brain MRI with and without contrast is pending.? Discontinue Dilantin.? Dilantin level pending.? Quad viral screen on admission along with CT of the brain without acute abnormalities.? He does not look toxic/septic and his foot ulcer does not appear erythematous or draining pus although signs of cellulitis was noted by the admitting nurse practitioner.? Discontinue vancomycin and Flagyl.? Continue cefepime for 1 more day and attempt to deescalate tomorrow.? Wound care team has been consulted.? His hemoglobin A1c is 5.5 this supports him having a poor diet and low sugars as reported by the .? He is on metformin and glargine 38 units b.i.d..? Is probably all too much for him.? Discontinue D5 normal saline at this time and monitor his blood sugars q.1 hour x2 and then q.4 hours thereafter.? He has been in the 80s to 100s overnight.? Hypoglycemia protocol is in place. 03/15 update: The patient now has declared hallucinations and delusions. The reports his confusion has been going on for a few months since Lent this year and not for 2 years. Visual hallucinations/delusions - clarifies this has been going on a few months since Lent of 2023. 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 He sees bugs and spider webs and is picking at his fingers. It is possible he picked that his toe and that is how his foot ulcer developed. The ulcer does not look infected at the moment and he does not appear septic/toxic so toxic encephalopathy is low on the differential. He also has delusions, remarking that the hospital staff is taking over his financial accounts. He does so in a very calm manner and does not appear to be cantankerous my evaluation. Workup is so far unrevealing and in a middle-age man a full psychiatric workup is prudent. Call out to Dr. Bledsoe pending -CT brain without contrast on 03/13 unremarkable -MRI brain brainstem without and with contrast on 03/14 unremarkable -chest x-ray one view on 03/13 unremarkable. Patient denies cough or shortness of breath -urinalysis on admission unremarkable -blood cultures pending, leukocytosis resolved -hypoglycemia on admission res
[2024-03-15 11:24] LABS: Glucose Point of Care 129 mg/dl (65-105)
[2024-03-15 11:58] LABS: Ammonia 12 umol/L (9-30)
[2024-03-15 12:10] LABS: HIV 1/2 Ab P24 Ag Result Negative (Negative)
--- NOTE | 2024-03-15 14:32 | WPDNEUROPN ---
Progress Note: A&P Assessment and Plan (1) Cognitive impairment: Code(s): R41.89 - Other symptoms and signs involving cognitive functions and awareness Status: Acute (2) Hallucination, visual: Code(s): R44.1 - Visual hallucinations Status: Acute (3) Delusions: Code(s): F22 - Delusional disorders Status: Acute (4) Gait instability: Code(s): R26.81 - Unsteadiness on feet Status: Acute (5) Seizure disorder: Code(s): G40.909 - Epilepsy, unspecified, not intractable, without status epilepticus Status: Acute Plan Mr. Pickett is a 58 year old male with a history of diabetes, gait instability, diabetic peripheral neuropathy, epilepsy presenting after being found unresponsive in the setting of hypoglycemia. There have also been ongoing concerns regarding cognitive decline, gait instability, and psychiatric symptoms (hallucinations, paranoia, delusions). Concern for dementia is high. Considering Lewy Body Dementia given the gait issues/bradykinesia, hallucinations, and cognitive decline. Another consideration would be autoimmune encephalitis. MRI brain with and without contrast is unrevealing. - Agree with psych consult - Consider LP for autoimmune encephalitis - Can do skin biopsy for synucleinopathy as outpatient to evaluate further for LBD - Dilantin has been discontinued - Started Keppra 500mg BID Subjective Date/time seen: 03/15/24 14:32 Interval history: Mr. Pickett is a 58 year old male with a history of diabetes, gait instability, diabetic peripheral neuropathy, epilepsy presenting after being found unresponsive. Patient was found unresponsive by his on day of presentation. EMS was called and his blood sugar was in the 20s. He was taken to [facility] for treatment of hypoglycemia and diabetic foot ulcer. During admission, has reported that patient has had cognitive decline for at least the past 6 months. He had to stop working due to his cognitive abilities. He has also had difficulty with his gait, falling more. As for his seizures, he started having seizures as a teenager, per . He has been on Dilantin since 1996, when he had a GTC. That is the only anti-seizure medication he takes. He is on Dilantin 300mg TID. Per , he does miss doses from time to time. has not witnessed any seizures since 1996, but patient does wake up in the morning confused, so is concerned that maybe he is having them in his sleep and not being witnessed. Patient reports as an he fell off a bed and cracked his skull. He does not currently have a neurologist, but was supposed to have an appt with our office yesterday which was missed due to the admission. 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 He is seeing bugs and cobwebs at times. He also started picking at his fingers around the same time. He has a history of depression which is not being treated. His issues with his gait started almost a year ago -- reports he has been slower and more unsteady since then. No tremor. No vivid dreams. He has had urinary/stool incontinence since October 2023/November 2023, but it is hard to ascertain if he is not making it to the bathroom on time when feeling the urge, or if he is losing sudden control of his bladder/bowel. There is no family history of dementia as far as is aware. No family history of seizures either. reports mother may have had bipolar disorder but was not formally diagnosed. MRI brain has been done with and without contrast which is unrevealing. Dilantin level is 9. Dr. Greenfield saw the patient and thought maybe the gait issues were ataxia related to Dilantin, so that has been discontinued. B12 is 469. TSH is normal. Folate not checked yet. UDS pending as is HIV and syphilis screen. Patient has been
[2024-03-15 15:13] VITALS: BP 65/48; PULSE 118; RESP 17; TEMP 36.3; O2SAT 100
[2024-03-15 15:14] VITALS: BP 123/76
[2024-03-15 16:41] LABS: Glucose Point of Care 137 mg/dl (65-105)
--- NOTE | 2024-03-15 18:56 | PC.NURSE ---
Pt started with visual hallucinations of cobwebs, suspicious of RN and PCT, unwilling to give us his birthday. Called pt who stated she would be up soon. Provider made aware and to bedside with RN. Provider voiced concerns of psych and will be consulting them on. Pt extremely suspicious of any requests and states he needs to go to work. Pt remains confused with intermittent hallucinations with at bedside. Continuous need to change chairs, return to bed, get up to leave, get shoes. Pt unwilling to take medications throughout this shift. Report passed to night RN.
--- NOTE | 2024-03-15 19:01 | WPDCNPSYCH ---
[facility] Data of Consult Date/Time: 03/15/24 19:01 Requesting Physician: Jermain Bermudez MD Primary Care Provider: Shannon Acuna MD Consult Narrative Narrative: Curbside Consult. Patient not seen. Neither patient nor his insurance will not be billed REASON FOR HOSPITALIZATION: Patient is a 58 y/o gentleman admitted to the Medicine Service on 03/13/2024 for mental status changes in the context of hypoglycemia. REASON FOR PSYCHIATRIC CURBSIDE CONSULT: Patient is still confused with delusions and visual hallucinations in the context of more normalized blood sugars. HISTORY OF PRESENT ILLNESS: Patient's Retail Sales Associate, Octavia Dotson MD, and the patient's chart served as historians. Patient has visual hallucinations of spiders and cobwebs. He also has delusions that hospital staff are out to get him and want to take over his finances. Although one report indicates patient's reported patient to have been confused for year. However in another report patient is reported to be confused since Lent. He is noted to pick at his fingers. 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 PAST NEUROLOGIC HISTORY: Neurology Consult note 07/06/2028 from another facility indicates patient presented with complaint of having more problems with memory.. he worked in [employer]. PAST PSYCHIATRIC HISTORY: None. Outpatient records have been reviewed without any indication of patient receiving Psychiatric care. Office Visit note 01/17/2024 indicates PHQ-2 = 3; and, PHQ-9 = 12 which indicates depression screening results are positive. I could find no evidence of Psychiatric treatment in chart review. PAST MEDICAL HISTORY: Insulin Dependent Diabetes Mellitus, Type II Diabetic Peripheral Neuropathy Hyperlipidemia Seizure Disorder with last seizure 1996 Obstructive Sleep Apnea Tonsillectomy Pharmacologic Non-compliance as evidenced in Office Visit ...has notused any medications for his diabetes in 2 years. HOME MEDICATIONS: Phenytoin 300 mg po bid Insulin glargine 38 units SQ bid Cholecalciferol 50 mcg po q am Metformin 2,000 units po bid ALLERGIES: No Known Drug Allergies SMOKING HISTORY: Never smoked as evidenced by not just in this admission record; but also in all of the patient's outpatient visit notes. ALCOHOL HISTORY: denies any recent or remote h/o alcohol use disorder and as evidenced in all of the patient's outpatient visit notes. DRUG HISTORY: Never used recreational drugs as evidenced by not just in this admission record; but also in all of the patient's outpatient visit notes. FAMILY HISTORY: Patient's father had a h/o talking to people not there. SOCIAL HISTORY: Patient is . He lives at home with his who has been taking care of him. 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 DISCUSSION: Patient has an advanced cognitive disorder as evidenced by not being oriented to situation. Cognitive concerns have been documented in Neurology consult note from another facility 07/06/2018. in the same Neurology Consult note, patient was identified to have worked in pest control. In hs 10/28/2023 Office Visit note, he was documented to have a Hgb A1c= 14.He has not used any medications for his diabetes in two years. He voiced concern that he can be incontinent. He was also reported to have lightheadedness and dizziness. His Office Visit note 01/17/2024 he presented with a chief complaint of unsteady gait with 6 falls over 7 months. His Insulin was stopped due to not been eating. He was also to have a sore on his head from falling 4 months earlier. He was documented to have limited insight and judgement and had PHQ screening positive for depression.These are findings suggestive of a dementing illness and/or complications of diabetes with recent new onset psychosis
[2024-03-15 20:10] VITALS: BP 132/84; PULSE 103; RESP 22; TEMP 36.1; O2SAT 96
[2024-03-15] MEDS: AMOXICILLIN/CLAVULANATE K 875-125 MG TAB 1 TABLET PO (20:48)
[2024-03-15] MEDS: levETIRAcetam 500 MG TABLET PO (20:48)
[2024-03-15 21:01] LABS: Rapid Plasma Reagin Non-Reactive (NonReactive)
[2024-03-15 21:01] LABS: Glucose Point of Care 250 mg/dl (65-105)
[2024-03-16 05:52] LABS: Amphetamine Screen Urine Negative (Negative); Barbiturate Screen Urine Negative (Negative); Benzodiazepines Screen Urine Negative (Negative); Cannabinoid Screen Urine Negative (Negative); Cocaine Screen Urine Negative (Negative); Methadone Screen Urine Negative (Negative); Opiate Screen Urine Negative (Negative); Phencyclidine Screen Urine Negative (Negative)
[2024-03-16 05:57] LABS: Basophils Percent Auto 0.5 % (0.2-1.2); Eosinophils Absolute Auto 0.1 K/mm3 (0-0.3); Eosinophils Percent Auto 0.8 % (0-4.4); Hematocrit 42.9 % (42.0-52.0); Hemoglobin 14.7 g/dL (14.0-18.0); Immature Granulocyte Absolute 0.02 K/mm3 (0.00-0.031); Immature Granulocyte Percent A 0.3 % (0-0.5); Lymphocytes Absolute Auto 1.55 K/mm3 (0.9-3.2); Lymphocytes Percent Auto 25.1 % (18.3-44.2); Mean Corpuscular HGB Conc 34.3 g/dl (32-36); Mean Corpuscular Hemoglobin 29.7 pg (26-34); Mean Corpuscular Volume 86.7 fl (80-100); Mean Platelet Volume 8.3 fl (7.4-10.4); Monocytes Absolute Auto 0.6 K/mm3 (0.1-0.6); Monocytes Percent Auto 10.4 % (2.6-8.5); Neutrophils Absolute Auto 3.9 K/mm3 (1.3-6.7); Neutrophils Percent Auto 62.9 % (45.5-73.1); Platelet Count Result 206 k/mm3 (150-375); Red Blood Count 4.95 M/mm3 (4.6-6.20); White Blood Count 6.2 K/mm3 (4.5-10.0)
[2024-03-16 06:08] LABS: Alanine Aminotransferase 19 U/L (6-50); Albumin Level 3.8 g/dL (3.5-5.1); Alkaline Phosphatase 148 U/L (38-126); Anion Gap 5 mmol/L (4-12); Aspartate Amino Transferase 26 U/L (17-59); Bilirubin,Total 0.4 mg/dL (0.2-1.3); Blood Urea Nitrogen 10 mg/dL (9-20); Calcium 9.3 mg/dL (8.4-10.2); Carbon Dioxide 28 mmol/L (22-30); Chloride 105 mmol/L (98-107); Estimated CRCL calculation 188 ml/min; Estimated Glomerular Filt Rate > 60; Glucose 175 mg/dL (65-110); Magnesium 1.9 mg/dL (1.6-2.3); Potassium 3.3 mmol/L (3.4-5.0); Sodium 138 mmol/L (137-145)
[2024-03-16 06:10] VITALS: BP 186/102; PULSE 96; RESP 20; TEMP 36; O2SAT 96
[2024-03-16 06:28] LABS: Vitamin D 25 Hydroxy 30.8 ng/mL
[2024-03-16 06:29] LABS: Procalcitonin 0.1 ng/mL
[2024-03-16] MEDS: hydrALAZINE HCL 20 MG/ML VIAL 10 MG IV PUSH (06:55)
[2024-03-16 07:36] LABS: Glucose Point of Care 174 mg/dl (65-105)
--- NOTE | 2024-03-16 08:20 | PC.NURSE ---
RN assumed care of pt. Pt mitts were taken off at some put during maintenance technician 2nd shift. When RN entered room pt didn't have mitts in place.
[2024-03-16] MEDS: CHOLECALCIFEROL 1,000 UNITS TABLET 2000 UNITS PO (08:33)
[2024-03-16] MEDS: levETIRAcetam 500 MG TABLET PO ×2 (08:33→20:57)
[2024-03-16] MEDS: ENOXAPARIN 40 MG/0.4 ML SYRINGE SUB-Q (08:33)
[2024-03-16] MEDS: AMOXICILLIN/CLAVULANATE K 875-125 MG TAB 1 TABLET PO ×2 (08:33→20:57)
--- NOTE | 2024-03-16 09:58 | WPDNEUROPN ---
Progress Note: A&P Assessment and Plan (1) Cognitive impairment: Code(s): R41.89 - Other symptoms and signs involving cognitive functions and awareness Status: Acute (2) Hallucination, visual: Code(s): R44.1 - Visual hallucinations Status: Acute (3) Delusions: Code(s): F22 - Delusional disorders Status: Acute (4) Gait instability: Code(s): R26.81 - Unsteadiness on feet Status: Acute (5) Seizure disorder: Code(s): G40.909 - Epilepsy, unspecified, not intractable, without status epilepticus Status: Acute Plan Mr. Pickett is a 58 year old male with a history of diabetes, gait instability, diabetic peripheral neuropathy, epilepsy presenting after being found unresponsive in the setting of hypoglycemia. There have also been ongoing concerns regarding cognitive decline, gait instability, and psychiatric symptoms (hallucinations, paranoia, delusions). Concern for dementia is high. Considering Lewy Body Dementia given the gait issues/bradykinesia, hallucinations, and cognitive decline. Another consideration would be autoimmune encephalitis. MRI brain with and without contrast is unrevealing. - Will obtain LP for autoimmune encephalitis - Can do skin biopsy for synucleinopathy as outpatient to evaluate further for LBD - Dilantin has been discontinued - Started Keppra 500mg BID Subjective Date/time seen: 03/16/24 09:58 Interval history: Mr. Pickett is a 58 year old male with a history of diabetes, gait instability, diabetic peripheral neuropathy, epilepsy presenting after being found unresponsive. Patient was found unresponsive by his on day of presentation. EMS was called and his blood sugar was in the 20s. He was taken to [facility] for treatment of hypoglycemia and diabetic foot ulcer. During admission, has reported that patient has had cognitive decline for at least the past 6 months. He had to stop working due to his cognitive abilities. He has also had difficulty with his gait, falling more. As for his seizures, he started having seizures as a teenager, per . He has been on Dilantin since 1996, when he had a GTC. That is the only anti-seizure medication he takes. He is on Dilantin 300mg TID. Per , he does miss doses from time to time. has not witnessed any seizures since 1996, but patient does wake up in the morning confused, so is concerned that maybe he is having them in his sleep and not being witnessed. Patient reports as an infant he fell off a bed and cracked his skull. He does not currently have a neurologist, but was supposed to have an appt with our office yesterday which was missed due to the admission. 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 He is seeing bugs and cobwebs at times. He also started picking at his fingers around the same time. He has a history of depression which is not being treated. His issues with his gait started almost a year ago -- reports he has been slower and more unsteady since then. No tremor. No vivid dreams. He has had urinary/stool incontinence since October 2023/November 2023, but it is hard to ascertain if he is not making it to the bathroom on time when feeling the urge, or if he is losing sudden control of his bladder/bowel. There is no family history of dementia as far as is aware. No family history of seizures either. reports mother may have had bipolar disorder but was not formally diagnosed. MRI brain has been done with and without contrast which is unrevealing. Dilantin level is 9. Dr. Greenfield saw the patient and thought maybe the gait issues were ataxia related to Dilantin, so that has been discontinued. B12 is 469. TSH is normal. Folate not checked yet. UDS pending as is HIV and syphilis screen. Patient has been expressing signs of paran
[2024-03-16 11:35] LABS: Glucose Point of Care 179 mg/dl (65-105)
--- NOTE | 2024-03-16 12:55 | PM.IMPN ---
Progress Note: A&P Assessment and Plan (1) Delusions: Code(s): F22 - Delusional disorders Status: Acute (2) Hallucination, visual: Code(s): R44.1 - Visual hallucinations Status: Acute (3) Cognitive impairment: Code(s): R41.89 - Other symptoms and signs involving cognitive functions and awareness Status: Acute (4) Cellulitis in diabetic foot: Code(s): E11.628 - Type 2 diabetes mellitus with other skin complications; L03.119 - Cellulitis of unspecified part of limb Status: Acute (5) Diabetic ulcer of toe: Code(s): E11.621 - Type 2 diabetes mellitus with foot ulcer; L97.509 - Non-pressure chronic ulcer of other part of unspecified foot with unspecified severity Status: Acute (6) Type 2 diabetes mellitus: Code(s): E11.9 - Type 2 diabetes mellitus without complications Status: Acute (7) Hypoglycemia: Code(s): E16.2 - Hypoglycemia, unspecified Status: Acute (8) Diabetic peripheral neuropathy: Code(s): E11.42 - Type 2 diabetes mellitus with diabetic polyneuropathy Status: Acute (9) Vitamin D deficiency: Code(s): E55.9 - Vitamin D deficiency, unspecified Status: Acute (10) Seizure disorder: Code(s): G40.909 - Epilepsy, unspecified, not intractable, without status epilepticus Status: Acute Plan 58-year-old male with a history of epilepsy, insulin-dependent type 2 diabetes mellitus, diabetic peripheral neuropathy, vitamin-D deficiency, [place] stenting with episode of unresponsiveness per the .? The patient 1st had a seizure in 1996 and was placed on Dilantin.? He has not had that dose change recently.? Reports the patient has confusion intermittently for the past 2 years but this has not been worked up.? She reports he has had 100 lb unintentional weight loss in last 1.5 years and otherwise drinking large amount of sweet tea throughout the day.? He does not take care of himself she handles his medications.? He was found to be profoundly hypoglycemic with EMS with a blood sugar of 20 and given IV dextrose.? Visual hallucinations/delusions/advanced cognitive decline -the is the main historian. She is very pleasant but has reported some conflicting history on separate occasions. Ultimately, deep chart review he has been noted to have history of limited judgment, noncompliance with medical therapy for many years back. He has also been complaining of intermittent lightheadedness and dizziness and gait instability for about 6 months. It is reported that his father was seen talking to someone not in the room past. But they do not know if he was officially diagnosed with any neuropsychiatric conditions. The patient sees bugs and spider webs and is picking at his fingers. It is possible he picked that his toe and that is how his foot ulcer developed. The ulcer does not look infected at the moment and he does not appear septic/toxic so toxic encephalopathy is low on the differential. He also has delusions, remarking that the hospital staff is taking over his financial accounts. He does so in a very calm manner and does not appear to be cantankerous my evaluation. On 03/16/2024 patient is no longer hallucinating or having delusions. He is back to being very calm, A&O x2. This appears to to reflect what most likely has been going on for many years. Please appreciate the documentation by Dr. Bledsoe on 03/15 which is notated to be a curbside consult. In summary, this patient most likely has an underlying cognitive decline such as dementia and if there is no organic/reversible cause then Dr. Bledsoe may be called for official consult, especially in the setting of the need for heating and cooling technician low dose antipsychotic. Although, patient has not needed physical or pharmacological restraints up to this point and has been very redirectable and does not outburst at the staff or have overt behavioral disturbances. I prefer to avoid pharmacological manage
--- NOTE | 2024-03-16 13:25 | PC.NURSE ---
RN informed provider that radiology would like to do the spinal tap tomorrow morning due to pt being on lovenox.
[2024-03-16 13:59] LABS: Prothrombin Time 13.4 Seconds (11.1-14.7)
[2024-03-16 14:00] VITALS: BP 93/59; PULSE 101; RESP 18; TEMP 36.6; O2SAT 99
[2024-03-16 16:11] LABS: Glucose Point of Care 232 mg/dl (65-105)
[2024-03-16] MEDS: POTASSIUM CHLORIDE 10 MEQ ER TABLET PO (16:42)
[2024-03-16] MEDS: INSULIN GLARGINE (*BKC) 100 UNITS/ML 20 UNITS SUB-Q (17:13)
[2024-03-16 20:00] VITALS: O2SAT 99
[2024-03-16 20:29] LABS: Prothrombin Time 13.7 Seconds (11.1-14.7)
[2024-03-16 20:30] LABS: Partial Thromboplastin Time 31.3 Seconds (22.3-36.8)
[2024-03-16 20:53] LABS: Glucose Point of Care 221 mg/dl (65-105)
[2024-03-16 22:00] VITALS: BP 142/85; PULSE 100; RESP 18; TEMP 36.5; O2SAT 100
--- NOTE | 2024-03-17 04:47 | PC.NURSE ---
Patient with no urine output this shift. Bladder scan done with volume greater than 700 ml. Patient attempted to void without success. Spoke with Dr. Astorga, new order received to place olivo catheter.
[2024-03-17 06:00] VITALS: BP 130/78; PULSE 94; RESP 16; TEMP 36.9; O2SAT 100
[2024-03-17 06:12] LABS: Basophils Absolute Auto 0.1 K/mm3 (0.0-0.1); Eosinophils Percent Auto 0.8 % (0-4.4); Hematocrit 40.9 % (42.0-52.0); Hemoglobin 13.9 g/dL (14.0-18.0); Immature Granulocyte Absolute 0.01 K/mm3 (0.00-0.031); Immature Granulocyte Percent A 0.2 % (0-0.5); Lymphocytes Absolute Auto 1.18 K/mm3 (0.9-3.2); Lymphocytes Percent Auto 24.2 % (18.3-44.2); Mean Corpuscular Hemoglobin 30.2 pg (26-34); Mean Corpuscular Volume 88.7 fl (80-100); Mean Platelet Volume 8.1 fl (7.4-10.4); Monocytes Absolute Auto 0.5 K/mm3 (0.1-0.6); Monocytes Percent Auto 9.6 % (2.6-8.5); Neutrophils Absolute Auto 3.1 K/mm3 (1.3-6.7); Neutrophils Percent Auto 64.2 % (45.5-73.1); Platelet Count Result 217 k/mm3 (150-375); Red Blood Count 4.61 M/mm3 (4.6-6.20); Red Cell Distribution Width 14.2 % (11.5-14.5); White Blood Count 4.9 K/mm3 (4.5-10.0)
[2024-03-17 06:48] LABS: Anion Gap 5 mmol/L (4-12); Blood Urea Nitrogen 13 mg/dL (9-20); Calcium 9.6 mg/dL (8.4-10.2); Carbon Dioxide 28 mmol/L (22-30); Chloride 107 mmol/L (98-107); Estimated CRCL calculation 154 ml/min; Estimated Glomerular Filt Rate > 60; Glucose 203 mg/dL (65-110); Magnesium 1.9 mg/dL (1.6-2.3); Potassium 3.8 mmol/L (3.4-5.0); Sodium 140 mmol/L (137-145)
[2024-03-17 07:34] LABS: Glucose Point of Care 192 mg/dl (65-105)
--- NOTE | 2024-03-17 08:20 | PC.NURSE ---
Pt has a lumbar punctured scheduled at 0900 so morning meds will be given at 1230 since pt has to lay flat 2hrs post LP.
--- NOTE | 2024-03-17 08:58 | PCPTNOTE ---
The patient treatment was not able to be completed at this time due to patient out of room for procedure/test. Will plan to continue treatment per plan of care.
[2024-03-17 09:00] VITALS: BP 91/60; PULSE 99; RESP 20; O2SAT 95
[2024-03-17 09:50] VITALS: BP 127/82; PULSE 93; RESP 16; O2SAT 100
[2024-03-17 10:08] LABS: Appearance CSF Clear (Clear); CSF source CSF; Color CSF Colorless (Colorless); Nucleated Cell CSF 1 /uL (0-5); Red Blood Cell CSF 0 (0-2)
[2024-03-17 10:11] LABS: Glucose CSF 112 mg/dL (40-70); Total Protein CSF 185 mg/dL (12-60)
--- NOTE | 2024-03-17 10:47 | P.PNNEUR_ITS ---
Progress Note: A&P Assessment and Plan (1) Cognitive impairment: Code(s): R41.89 - Other symptoms and signs involving cognitive functions and awareness Status: Acute (2) Hallucination, visual: Code(s): R44.1 - Visual hallucinations Status: Acute (3) Delusions: Code(s): F22 - Delusional disorders Status: Acute (4) Gait instability: Code(s): R26.81 - Unsteadiness on feet Status: Acute (5) Seizure disorder: Code(s): G40.909 - Epilepsy, unspecified, not intractable, without status epilepticus Status: Acute Plan Mr. Pickett is a 58 year old male with a history of diabetes, gait instability, diabetic peripheral neuropathy, epilepsy presenting after being found unresponsive in the setting of hypoglycemia. There have also been ongoing concerns regarding cognitive decline, gait instability, and psychiatric symptoms (hallucinations, paranoia, delusions). Concern for dementia is high. Considering Lewy Body Dementia given the gait issues/bradykinesia, hallucinations, and cognitive decline. Another consideration would be autoimmune encephalitis. MRI brain with and without contrast is unrevealing. CSF cell count normal. Protein level is quite elevated, which can be seen in the setting of diabetes. Sent autoimmune encephalitis panel. - He needs close Neurology outpatient follow-up - With elevated CSF protein and decline in gait, also need to consider CIDP, recommend EMG/NCS of lower extremities as outpatient - Can do skin biopsy for synucleinopathy as outpatient to evaluate further for LBD - Started Keppra 500mg BID Subjective Date/time seen: 03/17/24 10:47 Interval history: Mr. Pickett is a 58 year old male with a history of diabetes, gait instability, diabetic peripheral neuropathy, epilepsy presenting after being found unresponsive. Patient was found unresponsive by his on day of presentation. EMS was called and his blood sugar was in the 20s. He was taken to [facility] for treatment of hypoglycemia and diabetic foot ulcer. During admission, has reported that patient has had cognitive decline for at least the past 6 months. He had to stop working due to his cognitive abilities. He has also had difficulty with his gait, falling more. As for his seizures, he started having seizures as a teenager, per . He has been on Dilantin since 1996, when he had a GTC. That is the only anti-seizure medication he takes. He is on Dilantin 300mg TID. Per , he does miss doses from time to time. has not witnessed any seizures since 1996, but patient does wake up in the morning confused, so is concerned that maybe he is having them in his sleep and not being witnessed. Patient reports as an infant he fell off a bed and cracked his skull. He does not currently have a neurologist, but was supposed to have an appt with our office yesterday which was missed due to the admission. 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 He is seeing bugs and cobwebs at times. He also started picking at his fingers around the same time. He has a history of depression which is not being treated. His issues with his gait started almost a year ago -- reports he has been slower and more unsteady since then. No tremor. No vivid dreams. He has had urinary/stool incontinence since October 2023/November 2023, but it is hard to ascertain if he is not making it to the bathroom on time when feeling the urge, or if he is losing sudden control of his bladder/bowel. There is no family history of rohini
[2024-03-17 11:12] LABS: Glucose Point of Care 243 mg/dl (65-105)
[2024-03-17] MEDS: CHOLECALCIFEROL 1,000 UNITS TABLET 2000 UNITS PO (12:18)
[2024-03-17] MEDS: AMOXICILLIN/CLAVULANATE K 875-125 MG TAB 1 TABLET PO ×2 (12:18→21:05)
[2024-03-17] MEDS: levETIRAcetam 500 MG TABLET PO ×2 (12:18→21:05)
[2024-03-17] MEDS: INSULIN GLARGINE (*BKC) 100 UNITS/ML 20 UNITS SUB-Q (12:24)
[2024-03-17 14:00] VITALS: BP 80/60; PULSE 11; RESP 18; TEMP 36.8; O2SAT 99
[2024-03-17] MEDS: SODIUM CHLORIDE 0.9% IV 1,000 ML 999 ML IV CONT (14:38)
[2024-03-17] MEDS: SENNOSIDES 8.6 MG TABLET 17.2 MG PO (14:38)
--- NOTE | 2024-03-17 15:18 | PM.IMPN ---
Progress Note: A&P Assessment and Plan (1) Hallucination, visual: Code(s): R44.1 - Visual hallucinations Status: Acute Assessment and Plan: psychiatric versus neurological issues with the latter more likely Formerly worked with [employer] but retired in September, Consider LB dementia (skin bx for alpha-synuclein may helpful) LP performed today and has increased glucose and protein (c/w DM) Hypotensive post procedure and IV saline bolus given 5/ (2) Cognitive impairment: Code(s): R41.89 - Other symptoms and signs involving cognitive functions and awareness Status: Acute Assessment and Plan: chronic forgetfulness for years per spouse (3) Cellulitis in diabetic foot: Code(s): E11.628 - Type 2 diabetes mellitus with other skin complications; L03.119 - Cellulitis of unspecified part of limb Status: Acute Assessment and Plan: improving continue Augmentin (4) Type 2 diabetes mellitus: Code(s): E11.9 - Type 2 diabetes mellitus without complications Status: Acute Assessment and Plan: continue Lantus with SSI (5) Seizure disorder: Code(s): G40.909 - Epilepsy, unspecified, not intractable, without status epilepticus Status: Acute Assessment and Plan: continue Keppra Subjective Date/time seen: 03/17/24 15:18 Interval history: Feeling much better. Denied pain or dyspnea. Spouse at bedside thinks he is at his baseline or delusions. Good appetite. Tolerated lunch. Review of Systems Review of Systems: All systems reviewed & are unremarkable except as noted in HPI and below Exam Narrative: HEENT: PERRL, sclerae nonicteric, pharyngeal mucosa pink and intact NECK: No JVD CHEST: Clear to auscultation. Normal effort. HEART: NL S1/S2, regular, no murmur ABDOMEN: BS+, soft, nontender, no mass, no bruits EXTREMITIES: No cyanosis, edema, or clubbing NEUROLOGIC: CN intact and symmetric to inspection. MUSCULOSKELETAL: Tone and strength symmetric. PSYCH: Alert. Oriented to person, place. Objective Data Vital Signs Vital Signs: Vital Signs - 24 hr 03/16/24 20:00 03/16/24 22:00 03/17/24 06:00 Temperature 97.7 F 98.5 F Pulse Rate 100 94 Respiratory Rate 18 16 Blood Pressure 142/85 H 130/78 Pulse Oximetry 99 100 100 Oxygen Delivery Room Air 03/17/24 09:00 03/17/24 09:50 03/17/24 14:00 Temperature 98.3 F Pulse Rate 99 93 11 L Respiratory Rate 20 16 18 Blood Pressure 91/60 L 127/82 80/60 L Pulse Oximetry 95 100 99 Oxygen Delivery 03/17/24 08:29 Temperature Pulse Rate Respiratory Rate Blood Pressure Pulse Oximetry Oxygen Delivery Room Air Intake/Output Intake/Output: Intake & Output 03/14/24 03/15/24 03/16/24 03/17/24 23:59 23:59 23:59 23:59 Intake Total 2893.3 877 910 288 Output Total 525 1025 327 700 Balance 2368.3 148 587 -412 Meds/Results Medications: Active Medications Generic Name Dose Route Start Last Admin Trade Name Freq PRN Reason Stop Dose Admin Acetaminophen 650 mg 03/13/24 23:15 03/14/24 18:24 Acetaminophen 325 Mg Tablet PO 650 mg Q6H PRN Administration Mild Pain (1-3) or Fever Amoxicillin/Clavulanate Potassium 1 tablet 03/15/24 21:00 03/17/24 12:18 Amoxicillin/Clavulanate K 875-125 Mg Tab PO 03/20/24 20:59 1 tablet Q12HR BRIANDA Administration Dextrose 12.5 gm 03/13/24 18:52 Dextrose 50% 25 Gm/50 Ml Syringe IV PUSH PRN PRN Hypoglycemia Protocol Enoxaparin Sodium 40 mg 03/14/24 09:00 03/16/24 08:33 Enoxaparin 40 Mg/0.4 Ml Syringe SUB-Q 40 mg DAILY BRIANDA Administration Glucagon 1 mg 03/13/24 18:52 Glucagon For Inj 1 Mg Vial IM PRN PRN Hypoglycemia Protocol Glucose 15 gm 03/13/24 18:52 Glucose Oral Gel 15 Gm Of Glucse In 37.5 Gm Tube PO PRN PRN Hypoglycemia Protocol Dextrose 1,000 mls @ 100 mls/hr 03/13/24 18:52 Dextrose 5
[2024-03-17 16:33] LABS: Glucose Point of Care 211 mg/dl (65-105)
[2024-03-17 20:00] VITALS: O2SAT 99
[2024-03-17 21:00] LABS: Glucose Point of Care 181 mg/dl (65-105)
[2024-03-17 21:38] VITALS: BP 133/67; PULSE 90; RESP 20; TEMP 36.5; O2SAT 99
[2024-03-18 06:00] VITALS: BP 141/79; PULSE 95; RESP 20; TEMP 36.8; O2SAT 100
[2024-03-18 07:25] LABS: Glucose Point of Care 180 mg/dl (65-105)
[2024-03-18 08:00] VITALS: PULSE 103; RESP 16; O2SAT 100
[2024-03-18] MEDS: SENNOSIDES 8.6 MG TABLET 17.2 MG PO (10:39)
[2024-03-18] MEDS: levETIRAcetam 500 MG TABLET PO ×2 (10:39→20:59)
[2024-03-18] MEDS: CHOLECALCIFEROL 1,000 UNITS TABLET 2000 UNITS PO (10:40)
[2024-03-18] MEDS: AMOXICILLIN/CLAVULANATE K 875-125 MG TAB 1 TABLET PO ×2 (10:40→20:59)
[2024-03-18] MEDS: INSULIN GLARGINE (*BKC) 100 UNITS/ML 20 UNITS SUB-Q (10:44)
[2024-03-18 11:12] LABS: Glucose Point of Care 209 mg/dl (65-105)
--- NOTE | 2024-03-18 12:47 | WPDNEUROPN ---
Progress Note: A&P Assessment and Plan (1) Cognitive impairment: Code(s): R41.89 - Other symptoms and signs involving cognitive functions and awareness Status: Acute (2) Hallucination, visual: Code(s): R44.1 - Visual hallucinations Status: Acute (3) Delusions: Code(s): F22 - Delusional disorders Status: Acute (4) Gait instability: Code(s): R26.81 - Unsteadiness on feet Status: Acute (5) Seizure disorder: Code(s): G40.909 - Epilepsy, unspecified, not intractable, without status epilepticus Status: Acute Plan Mr. Pickett is a 58 year old male with a history of diabetes, gait instability, diabetic peripheral neuropathy, epilepsy presenting after being found unresponsive in the setting of hypoglycemia. There have also been ongoing concerns regarding cognitive decline, gait instability, and psychiatric symptoms (hallucinations, paranoia, delusions). Concern for dementia is high. Considering Lewy Body Dementia given the gait issues/bradykinesia, hallucinations, and cognitive decline. Another consideration would be autoimmune encephalitis. MRI brain with and without contrast is unrevealing. CSF cell count normal. Protein level is quite elevated, which can be seen in the setting of diabetes. Sent autoimmune encephalitis panel. - He needs close Neurology outpatient follow-up - With elevated CSF protein and decline in gait, also need to consider CIDP, recommend EMG/NCS of lower extremities as outpatient - Can do skin biopsy for synucleinopathy as outpatient to evaluate further for LBD - Continue Keppra 500mg BID Subjective Date/time seen: 03/18/24 12:47 Interval history: Mr. Pickett is a 58 year old male with a history of diabetes, gait instability, diabetic peripheral neuropathy, epilepsy presenting after being found unresponsive. Patient was found unresponsive by his on day of presentation. EMS was called and his blood sugar was in the 20s. He was taken to [facility] for treatment of hypoglycemia and diabetic foot ulcer. During admission, has reported that patient has had cognitive decline for at least the past 6 months. He had to stop working due to his cognitive abilities. He has also had difficulty with his gait, falling more. As for his seizures, he started having seizures as a teenager, per . He has been on Dilantin since 1996, when he had a GTC. That is the only anti-seizure medication he takes. He is on Dilantin 300mg TID. Per , he does miss doses from time to time. has not witnessed any seizures since 1996, but patient does wake up in the morning confused, so is concerned that maybe he is having them in his sleep and not being witnessed. Patient reports as an infant he fell off a bed and cracked his skull. He does not currently have a neurologist, but was supposed to have an appt with our office yesterday which was missed due to the admission. 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 He is seeing bugs and cobwebs at times. He also started picking at his fingers around the same time. He has a history of depression which is not being treated. His issues with his gait started almost a year ago -- reports he has been slower and more unsteady since then. No tremor. No vivid dreams. He has had urinary/stool incontinence since October 2023/November 2023, but it is hard to ascertain if he is not making it to the bathroom on time when feeling the urge, or if he is losing sudden control of his bladder/bowel. There is no family history of dementia as far as is aware. No family history of seizures either. reports mother may have had bipolar disorder but was not formally diagnosed. MRI brain has been done with and without contrast which is unrevealing. Dilantin level is 9. Dr. Greenfield saw the patient
--- NOTE | 2024-03-18 13:15 | P.PNIM_ITS ---
Progress Note: A&P Assessment and Plan (1) Hallucination, visual: Code(s): R44.1 - Visual hallucinations Status: Acute Assessment and Plan: * psychiatric versus neurological issues with the latter more likely * Formerly worked with [employer] but retired in September,, due to mental impairment * Consider LB dementia (skin bx for alpha-synuclein may helpful as outpatient) * LP performed t5/4 and has increased glucose and protein (c/w DM) * Hypotensive post procedure and IV saline bolus given / and resolved * Awaiting approval for acute rehab (2) Cognitive impairment: Code(s): R41.89 - Other symptoms and signs involving cognitive functions and awareness Status: Acute Assessment and Plan: * chronic forgetfulness for years per spouse (3) Cellulitis in diabetic foot: Code(s): E11.628 - Type 2 diabetes mellitus with other skin complications; L03.119 - Cellulitis of unspecified part of limb Status: Acute Assessment and Plan: * improving * continue Augmentin (4) Type 2 diabetes mellitus: Code(s): E11.9 - Type 2 diabetes mellitus without complications Status: Acute Assessment and Plan: * continue Lantus with SSI * / FBS 180, increased Lantus to 25 U (5) Seizure disorder: Code(s): G40.909 - Epilepsy, unspecified, not intractable, without status epilepticus Status: Acute Assessment and Plan: * continue Keppra Subjective Date/time seen: 03/18/24 13:15 Interval history: Feeling much better. Denied pain or dyspnea. Spouse at bedside thinks he is a t his mental baseline. No delusions. Good appetite. Tolerated lunch. No GI issues. Still has Yee. Review of Systems Review of Systems: All systems reviewed & are unremarkable except as noted in HPI and below Exam Narrative: HEENT: PERRL, sclerae nonicteric, pharyngeal mucosa pink and intact NECK: No JVD CHEST: Clear to auscultation. Normal effort. HEART: NL S1/S2, regular, no murmur ABDOMEN: BS+, soft, nontender, no mass, no bruits EXTREMITIES: No cyanosis, edema, or clubbing NEUROLOGIC: CN intact and symmetric to inspection. MUSCULOSKELETAL: Tone and strength symmetric. PSYCH: Alert. Oriented to person, place. Objective Data Vital Signs Vital Signs: Vital Signs - 24 hr 03/17/24 14:00 03/17/24 20:00 03/17/24 21:38 Temperature 98.3 F 97.7 F Pulse Rate 11 L 90 Respiratory Rate 18 20 Blood Pressure 80/60 L 133/67 Pulse Oximetry 99 99 99 Oxygen Delivery Room Air 03/18/24 06:00 Temperature 98.2 F Pulse Rate 95 Respiratory Rate 20 Blood Pressure 141/79 H Pulse Oximetry 100 Oxygen Delivery Intake/Output Intake/Output: Intake & Output 03/15/24 03/16/24 03/17/24 03/18/24 23:59 23:59 23:59 23:59 Intake Total 382 867 4971 590 Output Total 5771 387 2721 1700 Balance -148 Meds/Results Medications: Active Medications Generic Name Dose Route Start Last Admin Trade Name Freq PRN Reason Stop Dose Admin Acetaminophen 650 mg 03/13/24 23:15 03/14/24 18:24 Acetaminophen 325 Mg Tablet PO 650 mg Q6H PRN Administration Mild Bimal
--- NOTE | 2024-03-18 13:15 | PM.IMPN ---
Progress Note: A&P Assessment and Plan (1) Hallucination, visual: Code(s): R44.1 - Visual hallucinations Status: Acute Assessment and Plan: psychiatric versus neurological issues with the latter more likely Formerly worked with [employer] but retired in September,, due to mental impairment Consider LB dementia (skin bx for alpha-synuclein may helpful as outpatient) LP performed t5/4 and has increased glucose and protein (c/w DM) Hypotensive post procedure and IV saline bolus given /4 and resolved Awaiting approval for acute rehab (2) Cognitive impairment: Code(s): R41.89 - Other symptoms and signs involving cognitive functions and awareness Status: Acute Assessment and Plan: chronic forgetfulness for years per spouse (3) Cellulitis in diabetic foot: Code(s): E11.628 - Type 2 diabetes mellitus with other skin complications; L03.119 - Cellulitis of unspecified part of limb Status: Acute Assessment and Plan: improving continue Augmentin (4) Type 2 diabetes mellitus: Code(s): E11.9 - Type 2 diabetes mellitus without complications Status: Acute Assessment and Plan: continue Lantus with SSI / FBS 180, increased Lantus to 25 U (5) Seizure disorder: Code(s): G40.909 - Epilepsy, unspecified, not intractable, without status epilepticus Status: Acute Assessment and Plan: continue Keppra Subjective Date/time seen: 03/18/24 13:15 Interval history: Feeling much better. Denied pain or dyspnea. Spouse at bedside thinks he is at his mental baseline. No delusions. Good appetite. Tolerated lunch. No GI issues. Still has Yee. Review of Systems Review of Systems: All systems reviewed & are unremarkable except as noted in HPI and below Exam Narrative: HEENT: PERRL, sclerae nonicteric, pharyngeal mucosa pink and intact NECK: No JVD CHEST: Clear to auscultation. Normal effort. HEART: NL S1/S2, regular, no murmur ABDOMEN: BS+, soft, nontender, no mass, no bruits EXTREMITIES: No cyanosis, edema, or clubbing NEUROLOGIC: CN intact and symmetric to inspection. MUSCULOSKELETAL: Tone and strength symmetric. PSYCH: Alert. Oriented to person, place. Objective Data Vital Signs Vital Signs: Vital Signs - 24 hr 03/17/24 14:00 03/17/24 20:00 03/17/24 21:38 Temperature 98.3 F 97.7 F Pulse Rate 11 L 90 Respiratory Rate 18 20 Blood Pressure 80/60 L 133/67 Pulse Oximetry 99 99 99 Oxygen Delivery Room Air 03/18/24 06:00 Temperature 98.2 F Pulse Rate 95 Respiratory Rate 20 Blood Pressure 141/79 H Pulse Oximetry 100 Oxygen Delivery Intake/Output Intake/Output: Intake & Output 03/15/24 03/16/24 03/17/24 03/18/24 23:59 23:59 23:59 23:59 Intake Total 601 106 9930 590 Output Total 2383 807 8829 1700 Balance -148 Meds/Results Medications: Active Medications Generic Name Dose Route Start Last Admin Trade Name Freq PRN Reason Stop Dose Admin Acetaminophen 650 mg 03/13/24 23:15 03/14/24 18:24 Acetaminophen 325 Mg Tablet PO 650 mg Q6H PRN Administration Mild Pain (1-3) or Fever Amoxicillin/Clavulanate Potassium 1 tablet 03/15/24 21:00 03/18/24 10:40 Amoxicillin/Clavulanate K 875-125 Mg Tab PO 03/20/24 20:59 1 tablet Q12HR BRIANDA Administration Dextrose 12.5 gm 03/13/24 18:52 Dextrose 50% 25 Gm/50 Ml Syringe IV PUSH PRN PRN Hypoglycemia Protocol Enoxaparin Sodium 40 mg 03/14/24 09:00 03/16/24 08:33 Enoxaparin 40 Mg/0.4 Ml Syringe SUB-Q 40 mg DAILY BRIANDA Administration Glucagon 1 mg 03/13/24 18:52 Glucagon For Inj 1 Mg Vial IM PRN PRN Hypoglycemia Protocol Glucose 15 gm 03/13/24 18:52 Glucose Oral Gel 15 Gm Of Glucse In 37.5 Gm Tube PO PRN PRN Hypoglycemia Protocol Dextrose 1,000 mls @ 100 mls/hr 03/13/24 18:52 Dextrose 5% 1,000 Ml IVPB PRN PRN
[2024-03-18 14:00] VITALS: BP 93/65; PULSE 103; RESP 16; TEMP 36.7; O2SAT 100
[2024-03-18 17:14] LABS: Glucose Point of Care 194 mg/dl (65-105)
[2024-03-18 20:53] LABS: Glucose Point of Care 217 mg/dl (65-105)
[2024-03-18 21:21] VITALS: BP 107/69; PULSE 94; RESP 18; TEMP 36.9; O2SAT 99
[2024-03-19 06:00] VITALS: BP 146/92; PULSE 91; RESP 18; TEMP 36.9; O2SAT 100
[2024-03-19 07:56] LABS: Glucose Point of Care 157 mg/dl (65-105)
[2024-03-19] MEDS: SENNOSIDES 8.6 MG TABLET 17.2 MG PO (09:29)
[2024-03-19] MEDS: INSULIN GLARGINE (*BKC) 100 UNITS/ML 25 UNITS SUB-Q (09:30)
[2024-03-19] MEDS: CHOLECALCIFEROL 1,000 UNITS TABLET 2000 UNITS PO (09:30)
[2024-03-19] MEDS: AMOXICILLIN/CLAVULANATE K 875-125 MG TAB 1 TABLET PO ×2 (09:30→20:37)
[2024-03-19] MEDS: levETIRAcetam 500 MG TABLET PO ×2 (09:30→20:37)
[2024-03-19 11:14] LABS: Glucose Point of Care 165 mg/dl (65-105)
--- NOTE | 2024-03-19 11:47 | PCNFU ---
Nutrition Follow-Up Complete: Severe protein calorie malnutrition related to chronic loss of appetite as evidenced by weight loss -19%/5 months; inadequate intake <75% needs >1 month; moderate muscle wasting (temporalis, clavicles, shoulders) and moderate fat loss (buccal fat pads) Goal:Adequate PO intake at least 75% meals and supplements Pt current nutrition is Diabetic consistent carb. Nutrition recommendation: change supplement to Ensure compact per pt preference Last recorded weight is 85 kg. Bowel Motility:+BM / Labs Reviewed: Glu: 157 Meds Noted: lovenox Skin: WNL Additional Notes: Pt continues on a diabetic diet, intake fairly good at 100% of meals. Pt reported not drinking the Glucerna shakes due to taste, Will send Ensure compact for alternative. Monitoring intakes, weights, labs, plan of care Follow up in 5 days.
[2024-03-19 14:00] VITALS: BP 127/87; PULSE 81; RESP 20; TEMP 36.5; O2SAT 100
--- NOTE | 2024-03-19 15:29 | PM.IMPN ---
Progress Note: A&P Assessment and Plan (1) Hallucination, visual: Code(s): R44.1 - Visual hallucinations Status: Acute Assessment and Plan: psychiatric versus neurological Formerly worked with [employer] but retired in September,, due to mental impairment Consider LB dementia (skin bx for alpha-synuclein may helpful as outpatient) LP performed t5/4 and has increased glucose and protein (c/w DM) Hypotensive post procedure and IV saline bolus given 5/4 and resolved Awaiting approval for acute rehab no hallucination at the moment dc with neurology follow up see neuro recommendations on dc With elevated CSF protein and decline in gait, also need to consider CIDP, recommend EMG/NCS of lower extremities as outpatient - Can do skin biopsy for synucleinopathy as outpatient to evaluate further for LBD - Continue Keppra 500mg BID (2) Cognitive impairment: Code(s): R41.89 - Other symptoms and signs involving cognitive functions and awareness Status: Acute Assessment and Plan: chronic forgetfulness for years per spouse (3) Cellulitis in diabetic foot: Code(s): E11.628 - Type 2 diabetes mellitus with other skin complications; L03.119 - Cellulitis of unspecified part of limb Status: Acute Assessment and Plan: improving continue Augmentin (4) Type 2 diabetes mellitus: Code(s): E11.9 - Type 2 diabetes mellitus without complications Status: Acute Assessment and Plan: continue Lantus with SSI Sugars are in the 200s (5) Seizure disorder: Code(s): G40.909 - Epilepsy, unspecified, not intractable, without status epilepticus Status: Acute Assessment and Plan: continue Keppra Subjective Date/time seen: 03/19/24 15:29 Interval history: 58-year-old male with insulin dependent type 2 diabetes mellitus, diabetic peripheral neuropathy, seizure disorder, and obstructive sleep apnea who presented to the emergency department via EMS from home for evaluation after his found him unresponsive. She was out of town for the day yesterday and when she got home last evening he was asleep on the couch and she did not disturb him. When she got up this morning he was still on the couch and she was unable to get him to wake up and she called 911.?Some hallucination described on admission some tiredness describes him being in bed all the time no eating or drinking pt seen by neurology considering chronic neurological problem pt will need neuro follow up pt appears deconditioned benefits from placement. Pt is doing medically better awaiting placement Review of Systems Review of Systems: Pt looks better Exam Narrative: GEnerally: middle aged man chronically ill appearing HEENT: PERRL CHEST: Clear to auscultation. Normal effort. HEART: NL S1/S2, regular, no murmur ABDOMEN: BS+, soft, nontender, no mass, no bruits EXTREMITIES: No cyanosis, edema, or clubbing NEUROLOGIC: CN intact and symmetric to inspection. MUSCULOSKELETAL: Tone and strength symmetric. PSYCH: Alert. Oriented to person, place. Objective Data Vital Signs Vital Signs: Vital Signs - 24 hr 03/18/24 21:21 03/18/24 20:00 03/19/24 06:00 Temperature 36.9 C 36.9 C Pulse Rate 94 91 Respiratory Rate 18 18 Blood Pressure 107/69 146/92 H Pulse Oximetry 99 100 Oxygen Delivery Room Air 03/19/24 08:00 03/19/24 14:00 Temperature 36.5 C Pulse Rate 81 Respiratory Rate 20 Blood Pressure 127/87 Pulse Oximetry 100 Oxygen Delivery Room Air Intake/Output Intake/Output: Intake & Output 03/16/24 03/17/24 03/18/24 03/19/24 23:59 23:59 23:59 23:59 Intake Total 910 1028 2532 592 Output Total 327 1100 2300 Balance 583 -72 232 592 Meds/Results Medications: Active Medications Generic Name Dose Route Start Last Admin Trade Name Freq PRN Reason Stop Dose Admin Acetaminophen 650 mg 03/13/24 23:15 03/14/24 18
[2024-03-19 16:30] LABS: Glucose Point of Care 128 mg/dl (65-105)
[2024-03-19 21:25] LABS: Glucose Point of Care 107 mg/dl (65-105)
[2024-03-19 21:45] VITALS: BP 135/84; PULSE 83; RESP 16; TEMP 36.6; O2SAT 98
[2024-03-20 05:06] VITALS: BP 126/78; PULSE 97; RESP 16; TEMP 36.9; O2SAT 99
[2024-03-20 06:02] LABS: Mean Platelet Volume 8.1 fl (7.4-10.4); Platelet Count Result 227 k/mm3 (150-375)
[2024-03-20 07:30] LABS: Glucose Point of Care 102 mg/dl (65-105)
[2024-03-20] MEDS: AMOXICILLIN/CLAVULANATE K 875-125 MG TAB 1 TABLET PO (08:35)
[2024-03-20] MEDS: INSULIN GLARGINE (*BKC) 100 UNITS/ML 25 UNITS SUB-Q (08:35)
[2024-03-20] MEDS: levETIRAcetam 500 MG TABLET PO (08:36)
[2024-03-20] MEDS: ENOXAPARIN 40 MG/0.4 ML SYRINGE SUB-Q (08:36)
[2024-03-20] MEDS: CHOLECALCIFEROL 1,000 UNITS TABLET 2000 UNITS PO (08:36)
[2024-03-20 11:20] LABS: Glucose Point of Care 174 mg/dl (65-105)
--- NOTE | 2024-03-20 11:38 | PM.DS ---
DS: Admitting Diagnosis Discharge Date 03/20/24 Admitting Diagnosis Unresponsive DS: Discharge Diagnosis Discharge Diagnosis (1) Hallucination, visual: Code(s): R44.1 - Visual hallucinations Status: Acute (2) Hypoglycemia: Code(s): E16.2 - Hypoglycemia, unspecified Status: Acute (3) Cognitive impairment: Code(s): R41.89 - Other symptoms and signs involving cognitive functions and awareness Status: Acute (4) Cellulitis in diabetic foot: Code(s): E11.628 - Type 2 diabetes mellitus with other skin complications; L03.119 - Cellulitis of unspecified part of limb Status: Acute (5) Type 2 diabetes mellitus: Code(s): E11.9 - Type 2 diabetes mellitus without complications Status: Acute (6) Seizure disorder: Code(s): G40.909 - Epilepsy, unspecified, not intractable, without status epilepticus Status: Acute DS: Summary Hospital Course Reason for hospitalization: 58yo male with insulin dependent type 2 diabetes mellitus, diabetic peripheral neuropathy, seizure disorder, and obstructive sleep apnea who presented to the emergency department via EMS from home for evaluation after his found him unresponsive.?Please see H&P for details. Hospital Course: He was afebrile on arrival with stable blood pressures. He has been in a sinus tachycardia with rates in the low 100s. Labs were significant for WBC count of 14.4, hemoglobin 16.5, sodium 134, creatinine 0.40, glucose 91, lactic acid 1.2, and total CK 66. TSH, VitD and B12 normal. Ammonia 12. A1c 5.5. Urinalysis was unremarkable. Alcohol, acetaminophen, and salicylates were undetectable. He tested negative for influenza, RSV, and COVID PCR. Brain CT showed a normal brain. Chest x-ray showed no acute cardiopulmonary findings. He was started on a D5 drip for continued hypoglycemia (glucose down to 47) and was admitted for further workup. EKG showing no acute ST-T wave changes. BCx collected and were negative. Noted to have erythema around the right great toe. X-ry was negative for acute changes to the right great toe. He was started on abx for cellulitis with good results. Brain MRI showing normal brain. Dilatin level 9. UDS negative. HIV was negative; RPR non-reactive. Patient had a lumbar puncture on 03/17 with normal opening pressure and removal of 12mL of clear fluid. CSF showing no RBCs and only 1 nucleated cell. Glucose 112 and TP 185. VDRL, HSV PCR, Encephalitis panel is pending. CSF culture negative to date. Psychiatry and Neurology consulted. He was changed from phenytoin to Keppra. He will need close Neurology outpatient follow-up. With elevated CSF protein and decline in gait, there is also consideration for CIDP and EMG/NCS of lower extremities as outpatient is recommended. Also consider Lewy Body dementia and skin biopsy for synucleinopathy as outpatient will need to be arranged. His glucose improved and he was able to be weaned off IV dextrose. He was resumed on Lantus at lower dose. Glucose became better controlled. He worked with PT/OT. He overall did well and was able to discharged to rehab on 03/20/24 Status at Discharge Cognitive/behavioral status at discharge: stable Time Spent with Patient Time attestation: Total time spent providing and/or coordinating discharge services: 39 minutes Time spent: Greater than 30 minutes Exam Narrative: AF 98.4 126/78 97 16 99% ra Gen - NARD Chest - CTA bilaterally, nml RR CV - RRR S1/S2 Abd - Soft, NT/ND, Positive BS Ext - No pedal edema Neuro - Alert and oriented x2 (not year or Mono name). Nonfocal exam. Psych - Nml mood and affect Skin - Warm and dry. Right great toe with dried eschar and scant erythema. DS: Data Data Completed and Pending Labs on day of discharge: Labs from last 24 hours 03/20/24 03/20/24 03/20/24 11:16 07:24 05:50 Plt Count 227 MPV 8.1 POC Capillary Glucose 174 H 102 03/19/24 03/19/24 20:
[2024-03-20 23:04] LABS: Herpes Simplex Type 1 DNA PCR NOT DETECTED; Herpes Simplex Type 2 DNA PCR NOT DETECTED
[2024-03-21 00:23] LABS: VDRL Quantitative CSF NON-REACTIVE
--- NOTE | 2024-03-23 11:32 | PC.NURSE ---
CSF cx is negative. Dr. Lara mead.
[2024-04-04 17:05] LABS: Reference Lab Test Result Negative
== END 2024-03-20 13:40 | disposition home or self-care (01) | DRG 884 ==
LOC: ANHED 17:03 → ANHIMU 17:11 → ANH3MEDSUR 03-14 14:45
PROVIDERS: General Practice; Internal Medicine Cardiovascular Disease; Physician Assistant; Student in an Organized Health Care Education/Training Program; Admitting Provider Family Medicine; Emergency Provider Emergency Medicine; PCP Family Medicine; Visit Provider Internal Medicine
DX: R41.89 Other symptoms and signs involving cognitive functions and awareness (principal); E43 Unspecified severe protein-calorie malnutrition; L03.115 Cellulitis of right lower limb; E11.649 Type 2 diabetes mellitus with hypoglycemia without coma; E11.628 Type 2 diabetes mellitus with other skin complications; Z20.822 Contact with and (suspected) exposure to COVID-19; G40.909 Epilepsy, unspecified, not intractable, without status epilepticus; E11.42 Type 2 diabetes mellitus with diabetic polyneuropathy; G47.33 Obstructive sleep apnea (adult) (pediatric); E11.65 Type 2 diabetes mellitus with hyperglycemia; E78.5 Hyperlipidemia, unspecified; R44.1 Visual hallucinations; T42.0X5A Adverse effect of hydantoin derivatives, initial encounter; R27.0 Ataxia, unspecified; E11.621 Type 2 diabetes mellitus with foot ulcer; L97.519 Non-pressure chronic ulcer of other part of right foot with unspecified severity; E55.9 Vitamin D deficiency, unspecified; Z68.24 Body mass index [BMI] 24.0-24.9, adult
CPT/HCPCS: 36415; 36600; 62328; 70450; 70553; 71045; 73660; 80048; 80053; 80185; 80307; 81003; 82140; 82306; 82550; 82607; 82805; 82945; 82948; 83036; 83605; 83735; 84100; 84145; 84157; 84443; 85025; 85027; 85049; 85610; 85730; 86140; 86592; 86703; 87040; 87070; 87205; 87529; 87637; 89051; 93005; 96361; 96366; 96367; 96368; 96372; 96374; 96375; 96376; 97110; 97116; 97162; 97165; 97530; 97535; 99285; A9270; A9577; G0378; G0432; J0360; J0692; J1650; J1815; J1836; J3370; J7030; J7042

== ENCOUNTER 2025-01-31 08:59 | Outpatient (CLI) | payer OTHER, SELFPAY ==
--- OUTSIDE RECORDS SUMMARY | 2025-01-31 09:16 | XMS_ITS | Clinical Summary ---
Author Organization [facility] Address [address] [place] [address] Care Team Providers Care Dot Compliance Specialist Name Role Phone Shannon Acuna MD Primary Care Provider [phone] [facility],non-owned [facility] and Associated Physician Practices is amultiple site organization consisting of ambulatory clinics and hospital sitesin [place], [place], [place] and [place]. This disclosure is being madepursuant to the Care Everywhere program and may not contain all information available regarding this patient. Last updated 18.[facility] Allergies No known active allergies Medications * Be aware that medications may not be up to date on this document. Alwaysverify current medications with the patient. Medication Sig Dispensed Refills Start Date End Date Status Cholecalciferol 50 MCG (1999) Take 1 (one) tablet by mouth once daily Active Nutritional Supplements (Ensure Plus High Protein) LIQD Take 1 container by mouth 3 times daily 04/05/2024 Active acetaminophen (Tylenol) 325 MG tablet Take 2 (two) tablets by mouth every 4 hours as needed Maximum allowable Acetaminophen amount = 4 Grams (4000 mg) / 24 hours. 05/25/2024 Active folic acid (Folvite) 1 MG tablet Take 1 (one) tablet by mouth once daily 05/26/2024 Active polyethylene glycol 3350 (Miralax) 17 g packet Take 17 (seventeen) g by mouth once daily 05/26/2024 Active Blood Glucose Monitoring Suppl (Blood Glucose Monitor System) w/Device KITIndications:Drug -induced hyperglycemia Use 1 Each as directed for 60 days 60 Each 05/25/2024 Active [place] & Syringes MISC For insulin administration. 100 Each 1 05/25/2024 Active levETIRAcetam (Keppra) 1000 MG tablet TAKE ONE TABLET BY MOUTH 2 TIMES A DAY 60 tablet 05/25/2024 5 Active Blood Glucose Monitoring Suppl ([employer] Verio Flex System) w/Device KITIndications:Hype rglycemia, unspecified USE 1 EACH DIRECTED 1 kit 05/25/2024 5 Active Insulin Pen Needle 32G X 4 MM MISC USE 1 PEN NEEDLE 4 TIMES DAILY 100 Each 1 05/25/2024 5 Active Lancets (ONETOUCH DELICA PLUS 33G EXTRA FINE LANCET)Indications: Hyperglycemia, unspecified USE 1 LANCET 4 TIMES DAILY 100 Each 05/25/2024 5 Active blood glucose test strip USE 1 TEST STRIP TO TEST FOUR TIMES A DAY 100 strip 05/25/2024 5 Active metFORMIN ER 24hr (Glucophage XR) 500 MG tabletIndications:D iabetes mellitus screening Take 2 (two) tablets by mouth 2 times daily 120 tablet 08/29/2024 Active Active Problems Problem Noted Date Diagnosed Date Hospital discharge follow-up 06/21/2024 Drug-induced hyperglycemia 05/09/2024 Severe protein-calorie malnutrition 04/07/2024 Mood disorder 04/07/2024 Seizure disorder 04/07/2024 Severe orthostatic hypotension 04/03/2024 Weakness 04/03/2024 Unintentional weight loss 04/03/2024 Immunizations Name Administration Dates Next Due INFLUENZA VACCINE, QUADR. (A FLURIA, FLUZONE QUADRIVALENT; 6MO+) (IIV4) 08/28/2019 INFLUENZA VACCINE, QUADR. (F LUZONE; FLULAVAL; FLUARIX; AFLURIA QUADRIVALENT; 6MO+), 0.5 ML (IIV4) 10/30/2020 TD (ADULT), 5 LF TETANUS TOXOID, ADSORBED, PF TDAP, HISTORIC VACCINE 12/09/2017 Social History Tobacco Use Types Packs/Day Years Used Date Smoking Tobacco: Never Passive Smoke Exposure: Never Smokeless Tobacco: Never Tobacco Cessation:Counseling Given: Not Answered Alcohol Use Standard Drinks/Week Comments Not Currently 0 (1 standard drink = 0.6 oz pur e alcohol) AUDIT-C Answer Date Recorded Q1: How often do you have a drink containing alcohol? Never 04/05/2024 Q2: How many drinks containi ng alcohol do you have on a typical day when you are drinking? Patient does not drink Q3: How often do you have si x or more drinks on one occasion? Never 04/05/2024 Overall Financial Resource Strain (CARDIA) Answe r Date Recorded How hard is it for you to pa y for the very basics like food, housing, medical care, and heating? Not hard at all 04/05/2024 [facility] - Occupational Stress Questionnaire Answer Date Recorded Do you feel stress - tense, restless, nervous, or anxious, or unable to sleep at night because your mind is troubled all the time - these days? Not at all 04/05/2024 Hunger Vital Sign Answer Date Recorded Within the past 12 months, y ou worried that your food would run out before you got the money to buy more. Never true 04/05/20 24 Within the past 12 months, t he food you bought just didn't last and you didn't have money to get more. Never true 04/05/2024 PRAPARE - Transportation Answer Date Re corded In the past 12 months, has l ack of transportation kept you from medical appointments or from getting medications? No 03/15 In the past 12 months, has l ack of transportation kept you from meetings, work, or from getting things needed for daily living? No 04/05/2024 Housing Stability Vital Sign Answer Sergio e Recorded In the last 12 months, was t here a time when you were not able to pay the mortgage or rent on time? No 04/05/2024 In the last 12 months, how many places have you lived? 1 04/05/2024 In the last 12 months, was t here a time when you did not have a steady place to sleep or slept in a intermediate (including now)? No 04/05/2024 Sex and Gender Information Value Date Recorded Sex Assigned at Not on file Gender Identity Not on file Sexual Orientation Not on file Last Filed Vital Signs Vital Sign Reading Time Taken Comments Blood Pressure 155/94 08/29/2024 2:20 PM CDT Pulse 98 08/29/2024 2:20 PM CDT Temperature 37 C (98.6 F) 06/05/2024 5:29 AM CDT Respiratory Rate 18 06/04/2024 2:02 PM CDT Oxygen Saturation 97% 08/29/2024 2:20 PM CDT Inhaled Oxygen Concentration - - Weight 86.1 kg (189 lb 12.8 oz) 024 2:20 PM CDT Height 188 cm (6' 2 ) 04/10/2024 9:00 AM CDT Body Mass Index 24.37 04/10/2024 9:00 AM CDT Plan of Treatment Health Maintenance Due Date Last Done Comments COLOGUARD (AGES 45-75) - COL ON CA SCREENING 1964 COLON MONITORING 1964 COLONOSCOPY - COLON CA SCREENING 1964 CT COLONOGRAPHY - COLON CA SCREENING 1964 Colorectal Cancer Screening 1964 FIT - COLON CA SCREENING 1964 FLEX SIG - COLON CA SCREENING 1964 LIPID TESTING 1964 HEPATITIS C SCREENING 07/21/1982 PNEUMOCOCCAL VACCINE 50+ (1 of 2 - PCV) 1983 ZOSTER VACCINE (1 of 2) 2014 COVID-19 VACCINE (1 - 2023-2 5 season) 2024 INFLUENZA VACCINE (#1) 2024 , 08/28/2019 HEPATITIS B VACCINE (1 of 3 - Risk 3-dose series) 2024 Respiratory Syncytial Virus (RSV) Vaccine Pt: or over 60 yrs (1 - Risk 60-74 years 1-dose series) 2024 DEPRESSION SCREENING 11/14/2024 DTAP/TDAP/TD VACCINES (3 - T d or Tdap) 12/09/2027 12/09/2017, 09/02/2004 HIV SCREENING Completed 04/26/2024 HIB VACCINE Aged Out No longer eligi ble based on patient's age to complete this topic HPV VACCINE Aged Out No longer eligi ble based on patient's age to complete this topic MENINGOCOCCAL (Group B) VACCINE SHARED DECISION-MAKING Aged Out No longer eligible based on patient's age to complete this topic MENINGOCOCCAL GROUPS A/C/Y/W VACCINE Aged Out No longer eligible b ased on patient's age to complete this topic Procedures Procedure Name Priority Date/Time Associated Diagnosis Comments HIV-1 HIV-2 ANTIBODY + HIV P24 AG PANEL Routine 04/26/2024 2:05 AM CDT from Last 3 Months or Most Recently Relevant to Health Maintenance Results * HIV-1 HIV-2 ANTIBODY + HIV P24 AG PANEL (04/26/2024 2:05 AM CDT) HIV Antigen/Antibod y 1 & 2 Non-reacti ve Non-react denis 04/26/2024 4:[address] [facility] Comment:No Laboratory eviden ce of HIV infection. Blood BLOOD SPECIMEN / Unknown Lab Venipuncture / Unknown 04/26/2024 2:05 AM CDT 04/26/2024 2:50 AM CDT Franco Garibay MD LAB - CHEMISTRY NATHALIE BRAUN [facility] Organization Address City/State/ZIP Co de Phone Number [facility] [address] [place] [id number], [facility] [phone] from Last 3 Months or Most Recently Relevant to Health Maintenance Advance Directives * Full Code (Latest Code Status on File) Date Activated Date Inactivated Comments 04/03/2024 3:15 PM 06/05/2024 4:07 PM Care Teams Dot Compliance Specialist Relationship Specialty Start Date End Date Shannon Acuna MD [address] [place] [id number] PCP - General Family Medicine 05/21/24
--- NOTE | 2025-01-31 12:00 | NEURO_ITS ---
clinical note: Patient is 57 years old with history of ataxia and tendency to fall. He has history of diabetes mellitus. On a brief neurological examination no focal muscle wasting or fasciculations are noted in the lower limbs. Details of the nerve can study EMG are given below. Summary of findings 1. Left and right peroneal motor responses were absent over extensor digitorum brevis. However deep peroneal motor study performed over tibialis anterior shows conduction velocities were within normal limits. Amplitudes are however significantly decreased. 2. Left and right tibial motor were absent. 3. Right superficial peroneal sensory and bilateral sural sensory were absent. 4. Bilateral H reflex were absent. 5. EMG examination is performed using a monopolar needle electrode. Various muscles and paraspinal and peripheral region were examined. No denervation changes seen paraspinal muscles wears moderate decreased motor unit recruitment was noted in the distal muscles such as tibialis anterior and medial gastrocnemius. Impression: EMG nerve can study of both lower limbs show evidence of severe, length- dependent, axonal, sensory motor polyneuropathy such as may be seen with diabetes mellitus. There is no supportive evidence for L3-S1 radiculopathy or diabetic amyotrophy or myopathy at this time. radiographic correlation may be helpful for possible concurrent radiculopathy. Eugene Almanza MD,FAAN, FAANEM Neurologist Nerve Conduction Studies Motor Nerve Results ? Latency Amplitude F-Lat Segment Distance CV Comment Site (ms) (mV) (ms) (cm) (m/s) Left Dp Branch Fibular (TA) Motor Fib Head 4.6 1.28 Pop Fossa 7.4 0.74 Pop Fossa-Fib Head 110 39 Right Dp Branch Fibular (TA) Motor Fib Head 7.2 0.42 Pop Fossa 9.3 0.28 Pop Fossa-Fib Head 90 43 Left Fibular (EDB) Motor Ankle NR NR Bel Fib Head NR NR Bel Fib Head-Ankle 340 NR Pop Fossa NR NR Pop Fossa-Bel Fib Head 100 NR Right Fibular (EDB) Motor Ankle NR NR Bel Fib Head NR NR Bel Fib Head-Ankle 310 NR Pop Fossa NR NR Pop Fossa-Bel Fib Head 90 NR Left Tibial (AHB) Motor Ankle NR NR Knee NR NR Knee-Ankle 450 NR Right Tibial (AHB) Motor Ankle NR NR Knee NR NR Knee-Ankle 500 NR Sensory Nerve Results ? Latency (Peak) Amplitude (P-P) Segment Distance CV Comment Site (ms) (?V) (cm) (m/s) Right Superficial Fibular Sensory 14 cm-Ankle NR NR 14 cm-Ankle 100 NR Left Sural Sensory Calf-Lat Mall NR NR Calf-Lat Mall 120 NR Right Sural Sensory Calf-Lat Mall NR NR Calf-Lat Mall 120 NR H-Reflex Results ? M-Lat H Lat H Peak-Peak Amp M Peak-Peak Amp H-M Lat Site (ms) (ms) mV mV (ms) Left Tibial H-Reflex Pop Fossa - NR - - NR Right Tibial H-Reflex Pop Fossa - NR - - NR Electromyography ?Side Muscle Nerve Ins Act Fibs Psw Amp Dur Recrt Comment Right BicepsFemS Sciatic Nml Nml Nml Nml Nml Nml Right Semimembranosus Sciatic Nml Nml Nml Nml Nml Nml Right AntTibialis Dp Br Fibular Nml Nml Nml Incr >12ms +3 Right Gastroc Tibial Nml Nml 1+ Incr >12ms +2 Right RectFemoris Femoral Nml Nml Nml Nml Nml Nml Right TensorFascLat SupGluteal Nml Nml Nml Nml Nml Nml Left BicepsFemS Sciatic Nml Nml Nml Nml Nml Nml Left Semimembranosus Sciatic Nml Nml Nml Nml Nml Nml Left AntTibialis Dp Br Fibular Nml Nml Nml Nml >12ms +1 Left Gastroc Tibial Nml Nml Nml Incr >12ms +2 Left VastusMed Femoral Nml Nml Nml Nml Nml Nml Left L4 Parasp Rami Nml Nml Nml Nml Nml Nml Right L4 Parasp Rami Nml Nml Nml Nml Nml Nml Right L5 Parasp Rami Nml Nml Nml Nml Nml Nml Left L5 Parasp Rami Nml Nml Nml Nml Nml Nml MTDD
== END 2025-01-31 09:00 | disposition home or self-care (01) ==
PROVIDERS: PCP Family Medicine; Visit Provider Psychiatry & Neurology Neurology
DX: G60.8 Other hereditary and idiopathic neuropathies (principal); E11.9 Type 2 diabetes mellitus without complications; R26.9 Unspecified abnormalities of gait and mobility; E11.42 Type 2 diabetes mellitus with diabetic polyneuropathy; G40.909 Epilepsy, unspecified, not intractable, without status epilepticus
CPT/HCPCS: 95886; 95911